=== PATIENT | male | born 1960 | race Hispanic/Latino ===

== ENCOUNTER 2018-09-10 19:59 | Inpatient (IN) | payer MEDICARE ==
--- NOTE | 2018-09-10 21:31 | CT ---
CT OF THE HEAD: 09/10/18 at 9:11 p.m. COMPARISON: 09/10/18, 6:48 p.m. HISTORY: Status post TPA administration, altered mental status. TECHNIQUE: Axial CT imaging at 5 mm intervals from vertex through skull base without contrast. FINDINGS: The imaged paranasal sinuses/mastoid air cells are well aerated. There is a new intra-axial hemorrhage in the region of the basal ganglia posteriorly on the left barbara uring 2.6 cm. There is also intraventricular hemorrhage within the body of the left lateral ventricle extending into the region of the atrium. There is no significant midline shift at this time. No acut e osseous abnormality. IMPRESSION: Interval development of an intra-axial hemorrhage on the left with intraventricular extension. Results called to Dr. Molina, 9:16 p.m., 09/10/18. Code CR POS: [facility]
[2018-09-10] MEDS ORDERED: niCARdipine 20MG In NaCl 20 MG/200 ML BAG ONE (21:39)
--- NOTE | 2018-09-10 21:44 | RAD ---
PORTABLE SEMIUPRIGHT FRONTAL CHEST RADIOGRAPH 09/10/18 COMPARISON: 11/16/12. HISTORY: Stroke, TPA. FINDINGS: No pneumothorax, pleural fluid, focal consolidation or alveolar edema. The heart and mediastinal cont ours are unremarkable. IMPRESSION: No acute findings. POS: [facility]
--- NOTE | 2018-09-10 21:46 | RAD ---
FRONTAL AND LATERAL IMAGING LEFT FOREARM: 09/10/18 COMPARISON: None. HISTORY: Status post fall, injury, trauma, pain. FINDINGS: No acute fracture or evidence of dislocation. No radiopaque foreign body or subcutaneous gas. IMPRESSION: No acute findings. POS: [facility]
[2018-09-10] MEDS ORDERED: Sodium Chloride 3% 500 ML IVPB PRN (21:50)
[2018-09-10] MEDS ORDERED: Mannitol 12.5 GM/50 ML IV PRN (21:50)
[2018-09-10] MEDS ORDERED: Labetalol HCl 100 MG/20 ML VIAL SLOW IVP PRN (21:50)
[2018-09-10] MEDS ORDERED: CCU Electrolyte Replacement 1 EACH IVPB ONE (21:50)
[2018-09-10] MEDS ORDERED: Mag-Al 1200 mg/1200 mg/30 ML UDCUP PO PRN (21:50)
[2018-09-10] MEDS ORDERED: Phenylephrine 10 MG/NS 250 ML 250 ML IVPB PRN (21:50)
[2018-09-10] MEDS ORDERED: Norepinephrine 8 MG/0.9% NS 250 ML IVPB PRN (21:50)
[2018-09-10] MEDS ORDERED: Docusate 100 MG CAP PO PRN (21:50)
[2018-09-10] MEDS ORDERED: Propofol 1,000 MG/100 ML VIAL IV ONE (21:51)
[2018-09-10] MEDS ORDERED: Phytonadione 10 MG in Sodium Chloride 0.9% 50 ML IVPB SCH (22:00)
[2018-09-10] MEDS ORDERED: Ventilator Sedation Protocol 1 EACH FS SCH (22:00)
[2018-09-10] MEDS ORDERED: Magnesium 2 GM/NS 0.9% 100 ML 2 GM in Premix Bag 1 BAG IVPB PRN (22:13)
[2018-09-10] MEDS ORDERED: Potassium Phosphate 15 MMOL in Sodium Chloride 0.9% 250 ML 250 ML IV PRN (22:13)
[2018-09-10] MEDS ORDERED: Magnesium Oxide 400 MG TAB PO PRN ×2 (22:13)
[2018-09-10] MEDS ORDERED: Potassium Chloride 20 MEQ TAB PO PRN (22:13)
[2018-09-10] MEDS ORDERED: DISCONTINUE PREVIOUS NARCOTIC PAIN MEDICATIONS AND BENZODIAZEPINES FS SCH (22:13)
[2018-09-10] MEDS ORDERED: fentaNYL Citrate/PF 2,000 MCG in Sodium Chloride 0.9% 60 ML IV SCH (22:13)
[2018-09-10] MEDS ORDERED: Potassium Phosphate 9 MMOL in Sodium Chloride 0.9% 100 ML IVPB PRN (22:13)
[2018-09-10] MEDS ORDERED: Potassium Phosphate 12 MMOL in Sodium Chloride 0.9% 250 ML 250 ML IV PRN (22:13)
[2018-09-10] MEDS ORDERED: CCU ELECTROLYTE REPLACEMENT PROTOCOL FS PRN (22:13)
[2018-09-10] MEDS ORDERED: Propofol BOLUS 1,000 MG/100 ML VIAL IV PRN (22:13)
[2018-09-10] MEDS ORDERED: Fentanyl BOLUS 250 ML IVPB PRN (22:13)
[2018-09-10 22:22] LABS: Platelet Count 236 thou/uL (130-400)
[2018-09-10 22:31] LABS: Fibrinogen 238 mg/dL (253-463); INR-International Normal Ratio 1.1; PTT 28.5 SEC (22.9-36.1); Prothrombin Time 14.4 SEC (12.0-14.7)
[2018-09-10 22:39] LABS: D-Dimer Test 3.52 *mcg/mL (0.27-0.43)
[2018-09-10 22:52] LABS: FSP-Qualitative ABNORMAL (Normal); FSP-Semiquantitative >=5 & <20 mcg/mL (Less than 5)
--- NOTE | 2018-09-11 00:34 | HP ---
CHIEF COMPLAINT: Stroke HISTORY OF PRESENT ILLNESS: This is a 58-year-old male with past medical history significant for lymphoma, colon cancer, penile cancer, hyperlipidemia, and hypertension, presenting with left lower extremity weakness due to CVA. Per records, the patient states that he started having some weakness at 3 p.m., and the patient was then transferred to [place] due to left-sided weakness. I spoke to the daughter by the bedside. Daughter states that the patient called the [id number] and made the ipgjum-do-[id number] aware that he had fallen due to him having left-sided weakness. The patient was trying to get up, but the patient was unable to get up due to weakness that he was sustaining. Per EMS report, the patient had a left-sided deficit and also had confusion with some slurred speech. The patient was given tPA, and it improved his mental status. The patient was started on Cardene and nitro en route to [facility]. Per records, the patient denied hitting his head, but having weakness in the left side. The patient also had slurred speech and numbness. The patient denies chest pain, palpitations, abdominal pain, hematuria, dysuria, increased frequency with urination, hematochezia, melena. REVIEW OF SYSTEMS: Positive for dysarthria, numbness, weakness of the left extremity. Otherwise, as documented in the HPI. All other systems were reviewed and are negative. PAST MEDICAL HISTORY: Lymphoma, colon cancer, penile cancer, hyperlipidemia, hypertension. FAMILY HISTORY: Reviewed and noncontributory to this visit. PAST SURGICAL HISTORY: Removal of lymph nodes at the groin, distal amputation of penis. SOCIAL HISTORY: The patient lives at home with family. Denies any illicit drug use. Unable to obtain if the patient is an ethanol drinker or smokes tobacco because the patient is currently starting to get confused. ALLERGIES: NO KNOWN DRUG ALLERGIES. CURRENT MEDICATIONS: The patient is on carvedilol 25 mg b.i.d. and nifedipine 30 mg. PHYSICAL EXAMINATION: VITAL SIGNS: Blood pressure is 153/103, pulse of 67, respiratory rate of 14, temperature of 98.2, O2 saturation of 96% on room air. GENERAL: The patient is awake, alert, and oriented x0. The patient's mental status has changed acutely during the time the nurse saw the patient couple of minutes during my physical exam. HEENT: Normocephalic and atraumatic. Pupils are reactive to light bilaterally. Extraocular muscles are intact. There are no signs of scleral icterus. No conjunctival pallor. Mucous membranes are moist. NECK: Midline. Full range of motion. Supple. RESPIRATORY: Lungs are clear to auscultation bilaterally. No wheezing, no rales, no rhonchi appreciated. CARDIAC: Positive S1 and S2. Regular rate and rhythm. No murmurs, no gallops , no rubs appreciated. ABDOMEN: Soft, nontender, nondistended. Positive bowel sounds in all quadrants. No peritoneal signs. No rigidity, no guarding. EXTREMITIES: The patient has mild weakness at the left upper extremity. No edema noted. Good pulses bilaterally. In the lower extremities, the patient has 5/5 lower extremity strength. No edema. SKIN: Warm, dry, and intact. NEURO: The patient is currently confused, however, no drift, no dysarthria, no dysmetria. DATA: EKG shows left axis deviation, first-degree AV block with a rate of 66, normal sinus rhythm. CT of the head was negative, but due to the fact that the patient was confused, we got another stat CT of the head, which did not show that the patient has hemorrhagic bleed. The patient has intracranial hemorrhagic stroke. ED COURSE: The patient was given vecuronium, propofol, succinylcholine, and etomidate in the ED. LABORATORY DATA: WBC is 8.6, hemoglobin is 15.0, hematocrit is 46.6, RDW is 11.9, platelet count is 236. Sodium is 138, serum potassium is 3.2, chloride is 101, carbon dioxide is 23, anion gap of 17, creatinine is 1.17, GFR is 64, glucose of 90, AST is 25, ALT is 36. ASSESSMENT AND PLAN: 1. This is a 58-year-old male being transferred from [place] to our facility to be admitted for stroke, status post tPA, which has now converted into hemorrhagic stroke. At this point, the patient is confused, and the patient is having some weakness in the left upper extremity compared to the right upper extremity. A stat CT of the head had been done, and I read it myself and also confirmed with the ED physician who was seeing the patient. The patient has hemorrhagic stroke at this time, status post tPA. At this time, we have ordered PT, PTT, fibrinogen levels. We have also ordered vitamin K and FFP to help stabilize the bleed. We have consulted Neurosurgery, and we have consulted critical care/intensive care physician. Due to the patient's worsening mentation, at this point, we have decided to intubate the patient, so the patient is going to be intubated, and we are going to admit the patient to the ICU. We are going to keep the patient's blood pressure below 150 systolic, and we will continue to monitor the patient very closely. We will follow up CT scan of the head in the a.m. 2. History of hypertension, currently uncontrolled. The patient is on propofol , and we will start nicardipine drip to bring the patient's blood pressure below 150 systolic. We will continue to monitor the blood pressure closely. We will continue neuro checks. 3. Hyperlipidemia: At this point, this patient is n.p.o. We will hold off oral medications. We will monitor the patient. 4. Deep venous thrombosis and gastrointestinal prophylaxis. Patient seen and examined on the 09/10/2018 Job ID: [id number] [facility]
[2018-09-11] MEDS: Propofol 1,000 MG/100 ML VIAL IV PRN ×2 (02:03→07:05)
--- NOTE | 2018-09-11 05:32 | CON ---
DATE OF CONSULTATION: 09/10/2018 HISTORY OF PRESENT ILLNESS: Mr. Weston is a 58-year-old male, who went to the [facility] today due to some left-sided weakness, suspected ischemic stroke. At the ED, the patient was hypertensive and a CT was negative. The patient was given tPA and transferred to [facility] in [place]. Upon arrival, the patient was having some difficulty with left extremity motions; however, they were improving since earlier in the day. The patient was communicating well with nurses and staff upon arrival. The patient stated that he was coming home from work, getting out of his truck, and fell to the left side and was unable to get up due to weakness in the left upper and lower extremities. Shortly after arrival in our emergency department, the patient began to be more confused. He started having some right-sided weakness, and a new CT head was performed showing a left intracerebral hemorrhage with extension into the ventricle. Neurosurgery was consulted. Upon my arrival to the emergency department, the patient had been intubated. Shortly before my arrival, the patient had started to deteriorate and started gurgling and having difficulty breathing. REVIEW OF SYSTEMS: Unable to obtain review of systems. The patient is intubated and sedated. PAST MEDICAL HISTORY: Includes history of malignancy, lymphoma, colon cancer, penile cancer, hyperlipidemia, hypertension. PAST SURGICAL HISTORY: Colon surgery, removal of lymph nodes in the groin, distal amputation of penis due to cancer. SOCIAL HISTORY: The patient lives at home with his family. MEDICATIONS: 1. Carvedilol 25 mg b.i.d. 2. Nifedipine 30 mg once a day. PHYSICAL EXAMINATION: VITAL SIGNS: Blood pressure 163/103, heart rate 67, respirations 14, temperature 98.2, oxygen saturation 100% on ventilator. CONSTITUTIONAL: The patient is intubated and sedated. He is afebrile and hypertensive. HEENT: Head is normocephalic and atraumatic. Pupils are equal, round, and reactive to light. RESPIRATIONS: Normal, symmetrical chest rise on ventilation. CARDIOVASCULAR: Regular rate and rhythm. Normal S1 and S2. NEUROLOGIC: The patient has been heavily sedated for intubation, and he is not responsive to stimulus, painful or otherwise, at this time. Pupils are equal, round, and reactive to light. The patient had positive gag reflex prior to intubation and was agitated. IMAGING DATA: CT of the head, there is intracerebral hemorrhage on the left in the region of the basal ganglia, measuring 2.6 cm. There is extension into the ventricles on the left. There is no significant midline shift. ASSESSMENT AND PLAN: The patient has been brought into the hospital. We will monitor his neurological status due to tPA involved hemorrhage. We will keep his blood pressure below 150. Neuro checks every 2 hours. We will keep an EVD kit at bedside and get a repeat CT scan in the morning. If there are any questions, please contact the neurosurgery team. Job ID: [id number]
--- NOTE | 2018-09-11 07:57 | RAD ---
SINGLE VIEW OF THE CHEST: COMPARISON: 09/10/2018. HISTORY: Intubation. FINDINGS: A single view of the chest shows a cardiomediastinal silhouette which is upper limits of normal in si ze. The endotracheal tube is seen with its tip between the clavicles. An NG tube is seen in the sto mach. There is no evidence of consolidation, mass, or pleural effusion. IMPRESSION: Appropriate position of nasogastric tube and endotracheal tube. POS: [facility]
--- NOTE | 2018-09-11 07:57 | PRG ---
DATE OF SERVICE: 09/11/2018 I personally examined the patient, reviewed imaging and documentations, spoke with the family and agreed with the notes of Angie Vasquez PA-C, dated 09/10/2018 and 09/11/2018. Briefly, Perez Weston is a 58-year-old gentleman with a history of colon cancer, lymphoma, genitourinary cancer, and prostate cancer, who was fairly independent until yesterday. Reported to his daughters that he had had some falls. He was speaking on the phone with such dysarthria, he was unable to be understood and was taken to an outside emergency department. Examination of the patient suggested stroke and a CT was, at that time, negative for hemorrhage. TPA was administered. He was transferred for further care. In transfer, his blood pressure was noted to be in the 200s and was started on antihypertensives. On arrival here, CT examination of the brain showed hemorrhage in the left basal ganglia with some extension to the ventricular system of low density. A repeat CT scan has been done already this morning. Nursing reports that Mr. Weston has needed propofol to tolerate the event. It had only reflex activity on motor examination of the patient overnight. When I came in the room this morning, the blood pressure is 156/68. Other vital signs are stable. Propofol has been off for 1 to 2 minutes. I left the propofol off and examined the patient. With stimulus, he opens his eyes. He begins to withdraw the right and left upper extremities. The right arm is moving a bit more. He is not localizing that. In the lower extremities, the left withdraws more so than the right. CT examination of the brain this morning shows stabilization of the hemorrhagic focus in the left basal ganglia. There is a solid clot now rather than the low-density blood products. It is not bigger in size and not causing any significant mass effect. Intraventricular blood is washing out except for some blood products in the dependent portion of the occipital horn on the left side. There is no significant mass effect or shift. There seems to be some small amount of subarachnoid blood over the right convexity. The mcgrath-white differentiation on the right is not what I expected today. IMPRESSION: Cerebrovascular events treated with tPA, intracerebral hemorrhage. PLAN: As I spoke with Mr. Weston of his pathology on both sides of the brain, an MRI scan will be worthwhile today with the addition of contrast would be nice to rule out any involvement of his multiple previous cancers. If this turns out to be ischemic infarcts on both sides with hemorrhagic conversions due to tPA, the proximal source of the infarcts is before the carotid arteries and likely the heart itself. The first step is the MRI scan of the brain with stroke protocol but also with contrast. We will defer to the Medical and Neurology Teams about management of ischemic stroke with hemorrhagic conversion. I think the likelihood of surgical intervention is low. Job ID: [id number]
--- NOTE | 2018-09-11 08:41 | CT ---
PRELIMINARY REPORT/[facility]/EMERGENTY AFTER-HOURS PROCEDURE Addendum created by Nacho Aquino MD on 09/11/2018 4:59 AM Central Time ([place] & [place]) Examination results of the patient were discussed with MARK Odonnell on 09/11/2018 at 4:55 AM MAIL DISTRIBUTION SCHEME EXAMINER MAIL DISTRIBUTION SCHEME EXAMINER . Addendum created by Nacho Aquino MD on 09/11/2018 4:54 AM Central Time ([place] & [place]) A prior examination dated 09/10/2018 at 2111 hrs. was later sent for comparison: (1) No interval change in approximate 2.0 x 3.6 x 4.0 cm left-sided intraparenchymal hemorrhage or he morrhage within the left lateral ventricle. (2) areas of subarachnoid hemorrhage and hemorrhage within the right occipital horn are new compared to the prior CT head examination. Initial Report created on 09/11/2018 4:36 AM Central Time ([place] & [place]) CT Head Without Intravenous Contrast EXAM DATE/TIME: 09/11/2018 4:02 AM CLINICAL HISTORY: 58 years old, male; intracranial hemorrhage. aneurysm, cerebral TECHNIQUE: Axial computed tomography images of the head/brain without intravenous contrast. COMPARISON: No relevant prior studies available. FINDINGS: Brain: Approximate 2.0 x 3.6 x 4.0 cm acute intraparenchymal hemorrhage centered in the posterior lef t basal ganglia region lateral to the left thalamus. Small amount of subarachnoid hemorrhage within p arietal lobe cortical sulcal markings bilaterally. A few scattered small areas of decreased density i n the periventricular white matter which are likely secondary to chronic ischemia from microvascular change. Mild diffuse cerebral atrophy. Ventricles: Associated intraventricular extension of hemorrhage - hemorrhage within each occipital ho rn, left greater than right. Ventricular prominence in this patient with mild diffuse cerebral atroph y. Bones/joints: Normal. No acute fracture. Sinuses: Partial maxillary and ethmoid sinusitis. Mastoid air cells: No mastoiditis. Soft tissues: Normal. IMPRESSION: 1. Approximate 2.0 x 3.6 x 4.0 cm acute intraparenchymal hemorrhage centered in the posterior left ba liu ganglia region lateral to the left thalamus. Associated intraventricular extension of hemorrhage - hemorrhage within each occipital horn, left greater than right. 2. Small amount of subarachnoid hemorrhage within parietal lobe cortical sulcal markings bilaterally. Thank you for allowing us to participate in the care of your patient. Dictated and Authenticated by: Nacho Aquino MD 09/11/2018 4:36 AM Central Time ([place] & [place]) FINAL REPORT CT BRAIN WITHOUT CONTRAST: Date: 09/11/18 FINDINGS/IMPRESSION: I agree with the preliminary report given by Blanquita. POS: [facility]
--- NOTE | 2018-09-11 09:51 | PDOC.PN ---
- Subjective Encounter Start Date: 09/11/18 Encounter Start Time: 09:49 Mr. Weston was seen today in follow-up of CVA post TPA with Bleed. He is intubated and sedated. - Objective Resuscitation Status - Order Detail: 09/10/18 21:50 Resuscitation Status Routine Resuscitation Status: FULL: Full Resuscitation MAR Reviewed: Yes Vital Signs & Weight: Vital Signs (12 hours) Temp Pulse Resp BP Pulse Ox 09/11/18 07:23 82 142/75 H 09/11/18 06:00 18 09/11/18 04:00 98.2 F 16 09/11/18 02:26 69 123/74 09/11/18 02:00 15 09/11/18 00:23 79 148/84 H 09/11/18 00:00 98.4 F 16 100 Weight Weight 201 lb 0.985 oz Most Recent Monitor Data Heart Rate from ECG 85 NIBP 133/77 NIBP BP-Mean 95 Respiration from ECG 17 SpO2 100 I&O: 09/10/18 09/11/18 09/12/18 06:59 06:59 06:59 Intake Total 633 Output Total 420 Balance 213 Result Diagrams: 09/10/18 22:09 Additional Labs: Accuchecks 09/10/18 20:09 POC Glucose 97 Phys Exam - Physical Examination HEENT: PERRLA Respiratory: no wheezing, no rales, no rhonchi, clear to auscultation bilateral Cardiovascular: RRR, no significant murmur, no rub Gastrointestinal: soft, non-tender, no distention, positive bowel sounds Musculoskeletal: no edema, pulses present Puplis are equal and reactive Dx/Plan (1) Acute CVA (cerebrovascular accident) Code(s): I63.9 - CEREBRAL INFARCTION, UNSPECIFIED Status: Acute (2) Received tissue plasminogen activator (t-PA) less than 24 hours prior to arrival Code(s): Z92.82 - S/P ADMN TPA IN DIFF FAC W/N LAST 24 HR BEF ADM TO CRNT FAC Status: Acute (3) Intraventricular hemorrhage Code(s): I61.5 - NONTRAUMATIC INTRACEREBRAL HEMORRHAGE, INTRAVENTRICULAR Status: Acute (4) Hypertension Code(s): I10 - ESSENTIAL (PRIMARY) HYPERTENSION Status: Chronic (5) Prostate cancer Code(s): C61 - MALIGNANT NEOPLASM OF PROSTATE Status: Acute (6) Colon cancer Code(s): C18.9 - MALIGNANT NEOPLASM OF COLON, UNSPECIFIED Status: Acute (7) Acute respiratory failure Code(s): J96.00 - ACUTE RESPIRATORY FAILURE, UNSP W HYPOXIA OR HYPERCAPNIA Status: Acute - Plan * Patient is admitted with Acute CVA with left leg weakness. He is s/p TPA, and with hemorrhagic conversion of the stroke. He became less responsive, and was intubated. He has been given FFP. Neurosurgery has evaluated the patient and surgery is not indicated * Will continue Ventilator support of respiratory failure- and PCCM has been consulted * HTN- blood pressure is in an acceptable range on the Cardene drip * Await further recommendations from Neurology * Prostate cancer- apparently this was recently discovered, and plan is for treatment at [facility] in the future. Evaluation of this and treatment can be differed , as the acute critical nature of the CVA takes precedence- will cancel Oncology consult. * .
[2018-09-11 11:33] LABS: Bilirubin Negative (Negative); Blood, Urine Negative (Negative); Clarity CLEAR (Clear); Glucose, Urine (Dipstick) Negative (Negative); Leukocyte Negative (Negative); Nitrite Negative (Negative); Protein, Urine (Dipstick) 30 mg/dL (Neg-Trace); Specific Gravity, Urine 1.012 (1.002-1.036); Urobilinogen 0.2 mg/dL (0.2-1.0); pH, Urine 6.5 (5.0-9.0)
[2018-09-11 11:34] LABS: Bacteria/HPF None Seen HPF (None Seen); Hyaline Casts/LPF 0-3 HYALINE CAST LPF (0-3 Hyaline); Pathc Cast-AUWi Flag 0.58 (0-2.49); Squamous Epithelial 0-3 HPF (0-3); WBC/HPF 0-3 HPF (0-3)
[2018-09-11] MEDS: cefTRIAXone\\ROCEPHIN 2 GM in Sodium Chloride 0.9% 100 ML IVPB SCH (18:58)
[2018-09-11 19:21] LABS: #Lymphocytes 1.1 thou/uL (1.20-3.40); #Monocytes 1.1 thou/uL (0.11-0.59); #Neutrophils 9.3 thou/uL (1.40-6.50); %Basophils 0.1 % (0.0-1.0); %Eosinophils 0.1 % (0.0-10.0); %Lymphocytes 9.5 % (21.0-51.0); %Monocytes 9.2 % (0.0-10.0); %Neutrophils 81.1 % (42.0-75.0); Hemoglobin 13.5 g/dL (14.0-18.0); Mean Corpuscular HGB CONC 33.9 g/dL (32.0-36.0); Mean Corpuscular Hemoglobin 30.9 pg (27.0-31.0); Mean Corpuscular Volume 91.1 fL (78.0-98.0); Mean Platelet Volume 8.9 fL (7.4-10.4); Platelet Count 204 thou/uL (130-400); RBC Distribution Width 11.7 % (11.5-14.5); Red Blood Cell (RBC) Count 4.38 mill/uL (4.70-6.10); White Blood Cell (WBC) Count 11.4 thou/uL (4.8-10.8)
[2018-09-11 19:42] LABS: Anion Gap 14 mmol/L (10-20); BUN (Urea Nitrogen) 20 mg/dL (8.4-25.7); Calc. Creatinine Clearance 80 mL/min (70-130); Carbon Dioxide 25 mmol/L (22-29); Cardiac Risk 4.4 (Less than 4.5); Chloride 103 mmol/L (98-107); Cholesterol 220 mg/dl (< 200 Desired); Estimated GFR-MDRD 58; Glucose 169 mg/dL (70-105); HDL Cholesterol 50 mg/dL (>60 Neg Risk); LDL Cholesterol, Calculated 142 mg/dL; Sodium 139 mmol/L (136-145); Triglycerides 138 mg/dL (Less than 150)
[2018-09-11 19:47] LABS: Potassium 2.9 mmol/L (3.5-5.1)
--- NOTE | 2018-09-11 20:03 | CON ---
DATE OF CONSULTATION: 09/11/2018 CONSULTING PHYSICIAN: Dr. Msihra. REASON FOR CONSULTATION: Altered anatomy for catheter placement. HISTORY OF PRESENT ILLNESS: Mr. Weston is a 58-year-old male, who presented to [place] ER today with left-sided weakness, who has had a suspected ischemic stroke. He was hypertensive but received tPA and then ended-up with a hemorrhagic bleed into the brain. He is now currently in the ICU, intubated and under sedation. The patient had a condom catheter placed on, but had 400 mL in his bladder and it is unclear whether or not he will be able to urinate given that he is currently under sedation. He has a history of penile cancer and a partial penectomy at [facility] as well as apparently having a history of prostate cancer. The patient is completely unresponsive, but none of the history is able to be obtained from the patient. There is no family at bedside either. Dr. Mishra consulted me and stated that he was concerned about the patient's altered anatomy and wanted to seek my assistance in placement of a catheter or suprapubic tube to allow for urinary drainage. Again, there is no family at bedside and the patient is currently sedated, and all the history is obtained from nursing staff, physicians, and medical records. ALLERGIES: NONE. HOME MEDICATIONS: Not available at this time. PAST MEDICAL HISTORY: 1. Lymphoma. 2. Colon cancer. 3. Penile cancer. 4. Hyperlipidemia. 5. Hypertension. PAST SURGICAL HISTORY: 1. Partial colectomy. 2. Inguinal lymphadenectomy. 3. Distal amputation of penis secondary to cancer. SOCIAL HISTORY: The patient apparently lives at home and is and has a daughter. No other social history is available. FAMILY HISTORY: Unknown at this time. REVIEW OF SYSTEMS: Cannot be obtained as the patient is currently intubated and sedated. PHYSICAL EXAMINATION: VITAL SIGNS: Temperature 101.3; heart rate 85; respirations 17, on ventilator; blood pressure 133/77; and saturation 95%, again on ventilator. GENERAL: The patient is sedated. He does respond to stimuli, but did not open his eyes. HEENT: ET tube is in place, secured. Trachea, midline. Pupils are currently symmetric. CARDIOVASCULAR: Regular rate and rhythm. Normal S1 and S2. CHEST: Bilateral breath sounds, symmetric expansion of the lungs, currently ventilated. ABDOMEN: Soft, nontender, nondistended, positive bowel sounds, no organomegaly or masses. : The patient has a partial penectomy with removal of the glans. He has a neomeatus, which appears to be patent. There is currently a condom catheter in place, which was removed. Scrotal exam demonstrates bilateral descended testes, no masses. There does not appear to be any type of artificial urinary sphincter or pump device present. RECTAL: Deferred. EXTREMITIES: No significant clubbing, cyanosis, or edema. MUSCULOSKELETAL: There is no joint deformities or joint erythema noted. No obvious inflammation with any of the joints. NEUROLOGIC: The patient does withdraw to painful stimuli and does respond to physical touch, but not to verbal stimulation. A full neuro exam could not be performed, again as the patient is sedated. SKIN: Warm and dry. Good turgor. No rashes or lesions. The patient is currently warm from his fever. LABORATORY DATA: On laboratory evaluation, full set of labs in the [facility] system, which I have reviewed. Of note, the patient's creatinine is 1.17 with a white count of 8.6 as of yesterday. PROCEDURE: The penis was prepped in the usual sterile fashion. A 16-Malay Montejo catheter with temperature probe was inserted through the neomeatus. There was some resistance at the membranous urethra near the sphincter, but with gentle pressure and straightening the urethra, the catheter did go easily into the bladder. The bladder was irrigated with return of clear yellow urine. 10 mL of sterile water placed into the balloon and secured with a StatLock to the patient's leg. ASSESSMENT AND PLAN: A 58-year-old male with history of penile cancer and partial penectomy, unclear history if he also has prostate cancer as this is not mentioned in his medical records, but apparently, the nursing staff states his daughter stated he had this. It is currently not a current issue. He has a successful cathter placement currently. From my standpoint, he can keep the catheter as long as necessary by the Critical Care Team. From my standpoint, no further followup is necessary with me as he does have a urologist with [facility]. He can follow up with me on a p.r.n. basis if there are any problems with his catheter or issues regarding any issues. Feel free to reconsult, otherwise I will sign off at this time. Job ID: [id number]
[2018-09-11] MEDS: Potassium Chloride 40 MEQ in Sodium Chloride 0.9% 250 ML 250 ML IVPB PRN (21:10)
--- NOTE | 2018-09-11 21:47 | PRG ---
DATE OF SERVICE: 09/11/2018 SUBJECTIVE: Mr. Weston developed a fever this morning. Blood and urine cultures were drawn. I asked Urology to see him because he had an external catheter on his penis and it is unclear whether or not he had an artificial sphincter in. Apparently by exam, he did not, so a Montejo was placed. His urine was cultured, his blood was cultured. We will continue with supportive care. Critical care time is 35 minutes Job ID: [id number] MTDD
--- NOTE | 2018-09-12 00:48 | CON ---
DATE OF CONSULTATION: 09/11/2018 TYPE OF CONSULTATION: Neurology. CONSULTING PHYSICIAN: Hospitalist Services. IMPRESSION: 1. Intraventricular and basal ganglia hemorrhage following tPA administration on the left side resulting in depressed mental status. 2. Questionable ischemic event with transient dysarthria associated with marked hypertension. 3. History of colon cancer, lymphoma, and prostate cancer. PLAN: 1. MRI of the brain. 2. Continue supportive measures. 3. Intervention is deemed necessary by Neurosurgery. HISTORY OF PRESENT ILLNESS: Mr. Weston is a 58-year-old gentleman, who presented to [facility] with complaints of dysarthria. He was hypertensive with systolic pressures over 200. He apparently had a CT of the brain done and subsequent administration of tPA. He developed a secondary hemorrhage and was transferred here for care. He was seen by Neurosurgery, who has not thought any intervention is necessary at this point. Due to the concerns of an ischemic event, they would like an MRI before proceeding with anything. He has not had any secondary seizures or other neurologic or cardiovascular compromise. PAST MEDICAL HISTORY: As listed above. ALLERGIES: NONE REPORTED. SOCIAL HISTORY: Unknown. FAMILY HISTORY: Unknown. REVIEW OF SYSTEMS: Not obtainable. PHYSICAL EXAMINATION: VITAL SIGNS: Blood pressure 158/88, pulse 51, respirations 16, saturations 100%. He is on ventilatory support. HEENT: Pupils are equal. Conjunctivae are clear. He has roving eye movements that are conjugate. He is orally intubated. EXTREMITIES: He has weak pain response in the extremities with very minor degrees of withdrawal present to painful stimulation. Plantar responses are upgoing bilaterally. He has some spontaneous movements of the right arm more than the left. EKG, sinus rhythm. SUMMARY: This is an unfortunate middle-aged gentleman, who had a fairly significant intracranial bleed secondary to his tPA. I will see if the MRI warrants further workup for TIA and stroke. Job ID: [id number]
--- NOTE | 2018-09-12 03:11 | CON ---
DATE OF CONSULTATION: 09/11/2018 HISTORY OF PRESENT ILLNESS: Mr. Weston is a 58-year-old male. He was admitted last night. He presented upon transfer from [facility] with left-sided weakness. He apparently fell and that is when they discovered the weakness. He also had slurred speech. He was transferred here. PAST MEDICAL HISTORY: Remarkable for colon cancer, penis cancer, hyperlipidemia , hypertension, and history of lymphoma. 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 SOCIAL HISTORY: He is a nonsmoker and nondrinker reportedly. ALLERGIES: HE HAS NO REPORTED ALLERGIES. MEDICATIONS: Prior to admission, he was on, 1. Nifedipine. 2. Coreg. PHYSICAL EXAMINATION: VITAL SIGNS: Blood pressure is in the 150s. Heart rate is in sinus rhythm in the 50s. He was switched off propofol and he was started on Precedex. His heart rate was in the 70s prior to Precedex, now in the 50s. His last blood pressure was 156/84. HEENT: His pupils are equal. Sclerae are anicteric. NECK: Supple. LUNGS: Clear. HEART: Regular rhythm. ABDOMEN: Soft. EXTREMITIES: Without asymmetry. ASSESSMENT AND PLAN: Apparently, he was quite hypertensive in [facility] and received tPA and then bled. Dr. Menendez feels his neuro status is stabilizing. He recommended a magnetic resonance imaging. He is not weanable from mechanical ventilation. He apparently was transferred and deteriorated after he got here and then was intubated, so we will continue mechanical ventilation until his neuro status stabilizes. Critical care time 30 minutes. Job ID: [id number] [facility]
[2018-09-12 04:35] LABS: Anion Gap 13 mmol/L (10-20); BUN (Urea Nitrogen) 21 mg/dL (8.4-25.7); Calc. Creatinine Clearance 87 mL/min (70-130); Calcium 9.1 mg/dL (7.8-10.44); Carbon Dioxide 24 mmol/L (22-29); Chloride 105 mmol/L (98-107); Estimated GFR-MDRD 64; Glucose 157 mg/dL (70-105); Sodium 139 mmol/L (136-145)
[2018-09-12 04:51] LABS: Potassium 2.9 mmol/L (3.5-5.1)
[2018-09-12 05:21] LABS: Band 1 % (5-11); Hemoglobin 13.4 g/dL (14.0-18.0); Hypochromia SLIGHT = 6-15 cells (100X) (0-5/hpf); Lymphocytes 3 % (21-51); MDiff Complete? YES; Mean Corpuscular HGB CONC 34.3 g/dL (32.0-36.0); Mean Corpuscular Hemoglobin 31.4 pg (27.0-31.0); Mean Corpuscular Volume 91.5 fL (78.0-98.0); Mean Platelet Volume 9.7 fL (7.4-10.4); Monocytes 3 % (0-10); Neutrophil 93 % (42-75); PLT Morphology Comment Appears Adequate; Platelet Count 197 thou/uL (130-400); RBC Distribution Width 11.8 % (11.5-14.5); Red Blood Cell (RBC) Count 4.26 mill/uL (4.70-6.10); White Blood Cell (WBC) Count 12.2 thou/uL (4.8-10.8)
[2018-09-12] MEDS: Potassium Chloride 40 MEQ in Sodium Chloride 0.9% 250 ML 250 ML IVPB PRN (05:40)
[2018-09-12] MEDS: Propofol 1,000 MG/100 ML VIAL IV PRN (06:25)
[2018-09-12 07:15] LABS: CKMB 1.1 ng/mL (0-6.6); Troponin I 0.015 ng/mL (< 0.028)
[2018-09-12 07:55] LABS: Base Excess (BEa) 2.4 mEq/L (-2.0 to +3.0); CO2 Tension 32.5 mmHg (35.0-45.0); Calcium, Ionized 1.18 mmol/L (1.12-1.30); Carboxyhemoglobin (COHb) 1.2 gm% (0.0-3.0); Hemoglobin (Hb) 12.5 g/dL (14.0-18.0); O2 Tension (PaO2) 123.1 mmHg (> 80.0); Potassium - ABG Lab 3.27 mmol/L (3.70-5.30)
[2018-09-12 07:58] LABS: ALV-art Gradient 121.475 (0-20); Puncture Site L.R.
--- NOTE | 2018-09-12 08:30 | PRG ---
DATE OF SERVICE: 09/12/2018 NEUROSURGERY PROGRESS NOTE I saw Perez Weston in his ICU room this morning. His nursing is concerned about a wide QRS complex and some ST-segment changes. I feel this started to happen on Precedex, whereas it had not occurred on propofol. Otherwise, there are no events overnight. This morning, the vital signs are relatively stable with the blood pressure in the 140s. Rhythm and rate are normal. The QRS complexes are little wide, and there are some ST-segment elevations and depressions. This is on the monitor, not on a formal EKG. In spite of Precedex running, Mr. Weston opens his eyes to stimulus. He localizes much more briskly today than yesterday. The right side moves faster with more purpose than the left side of the body. He still withdraws both legs and both arms. He tends to localize with the left arm, but it is quite weak compared to the right. MR imaging is pending. Plan is for Mr. Weston to have MR imaging. I think he has an ischemic stroke involving the right hemisphere of the brain and hemorrhage in an area, where he may have had the previous stroke on the left side. The hemorrhage is likely related to the tPA use and hypertension at the same time. We will continue to follow Mr. Weston. I will defer the management of this cardiac change to Critical Care and Medical colleagues; however, I recommended changing back to propofol to see if it helps. In the meantime, cardiac enzymes and EKGs will be ordered. We will continue to follow for his neurological status. Job ID: [id number] MTDD
--- NOTE | 2018-09-12 09:02 | RAD ---
CHEST 1 VIEW: Date: 09/12/18 INDICATION: Intubation. COMPARISON: Prior exam dated 09/10/18. FINDINGS: ET tube and gastric catheter are unchanged. Cardiomegaly and pulmonary vascular congestion persists. No consolidation, pleural effusion, or pneumothorax is evident. No acute osseous abnormality is noted . IMPRESSION: Stable exam from 09/10/18. No pneumothorax. POS: [facility]
[2018-09-12] MEDS ORDERED: Amlodipine 5 MG TAB PO SCH (09:30)
[2018-09-12] MEDS ORDERED: Succinylcholine Chloride 20 MG/ML 10 ml SYRINGE FS ONE (11:11)
[2018-09-12] MEDS ORDERED: PROPOFOL 200 MG/20 ML VIAL ONE (11:11)
[2018-09-12] MEDS: Lorazepam 2 MG/ML VIAL SLOW IVP PRN (11:44)
--- NOTE | 2018-09-12 12:06 | PRG ---
DATE OF SERVICE: 09/12/2018 SUBJECTIVE: Perez Weston is unchanged. VSS OBJECTIVE: LUNGS: Clear. HEART: Regular rhythm. ABDOMEN: Soft and nontender. EXTREMITIES: Without edema. Chest radiograph is clear. Intake and output negative 889. Blood gas shows a pH of 7.5, CO2 of 32, pO2 of 123. IMPRESSION: 1. Status post presentation to the emergency room with hemiplegia and hypertension. 2. Status post tPA with bleed post tPA. 3. Respiratory failure, acute. PLAN: As per Neurology and Neurosurgery's guidance. He will remain mechanically ventilated at this time. He is not candidate for weaning or extubation. Critical care time is 35 minutes. Job ID: [id number] MTDD
--- NOTE | 2018-09-12 14:16 | MRI ---
MRI BRAIN WITH AND WITHOUT CONTRAST: 09/12/2018 HISTORY: Evaluate acute infarction and intracranial hemorrhage. COMPARISON: None. TECHNIQUE: Multiplanar, multisequence MR imaging of the brain is provided with and without contrast. FINDINGS: There is a large area of restricted diffusion within the MCA territory, on the right, evidence of ext ensive right MCA acute infarction. This measures 5.1 x 9.7 cm in greatest transverse and AP dimensio n. On the gradient echo imaging, there are a few scattered, somewhat linear foci of blooming artifac t within this area of infarction, within the right MCA territory, which could represent small volume associated petechial hemorrhage or small volume subarachnoid hemorrhage. Clot within the peripheral MCA branches could also have a similar appearance. Blooming artifact on the basis of intraaxial hemorrhage is seen lateral to the basal ganglia on the l eft. This left intraaxial hemorrhage measures 1.8 x 2.9 cm. There is blooming artifact associated w ith intraventricular blood, which layers within the posterior horn of the left lateral ventricle. The above described above MCA infarction on the right demonstrates extensive cytotoxic edema with inc reased T2 and FLAIR signal within the associated periventricular deep and subcortical white matter. There is extensive mucosal thickening of the sphenoid sinuses and the ethmoid air cells. Arterial flow voids at the axial level of the skull base are grossly unremarkable but not optimally a ssessed on this exam. The post contrast imaging demonstrates no abnormal enhancement within the brain parenchyma. There is mild mass effect on the right lateral ventricle, which is effaced in the region of the front al horn and atrium. There is mild right to left midline shift at the axial level of the septum pellucidum, which measures in the 3 mm range. IMPRESSION: 1. Large acute middle cerebral artery infarction on the right. Scattered small volume internal area s of blooming artifact may signify intra-arterial thrombus, small volume petechial cortically based h emorrhage, and/or small volume subarachnoid blood. 2. Intra-axial hemorrhage lateral to the left basal ganglia, with intraventricular extension. 3. Mild right to left midline shift. Angie Vasquez PA-C made aware, via phone, by Dr. Montero, at 12:47 p.m. on 09/12/2018. CODE CR POS: [facility]
--- NOTE | 2018-09-12 14:20 | PRG ---
DATE OF SERVICE: 09/12/2018 COVERING FOR: Dr. Mcclellan. REASON FOR NEUROLOGY FOLLOWUP: Altered mental status. HISTORY OF PRESENT ILLNESS: The patient came in from an outside hospital with stroke-like symptoms. He received tPA. He has suffered an intraventricular and basal ganglia hemorrhage. He is unable to follow commands at this time. He is intubated on the ventilator. He is noted to move his right side. He is not moving his left side. REVIEW OF SYSTEMS: Unable to obtain due to the patient's mental status. The patient also is being seen by Neurosurgery. PHYSICAL EXAMINATION: VITAL SIGNS: Show blood pressure of 127/68, O2 sat is 100%, heart rate 46, and respiratory rate 18. DIAGNOSTIC DATA: MRI of the brain was ordered and is pending. CT of the head was performed on 09/11/2018 at 04:59 a.m. There was a 2 x 3.6 x 4 cm left intraparenchymal hemorrhage within the left lateral ventricle. IMPRESSION: A large intracerebral hemorrhage, also history of hypertension and cerebrovascular accident. PLAN: Obtain MRI of the brain when able. Ordered an EEG. Job ID: [id number]
[2018-09-12 14:41] LABS: Potassium 2.9 mmol/L (3.5-5.1)
[2018-09-12] MEDS: Potassium Chloride 40 MEQ in Premix Bag 1 BAG IVPB PRN ×2 (16:44→23:07)
[2018-09-12] MEDS: cefTRIAXone\\ROCEPHIN 2 GM in Sodium Chloride 0.9% 100 ML IVPB SCH (20:45)
[2018-09-12] MEDS: niCARdipine HCl 50 MG in Sodium Chloride 0.9% 250 ML 230 ML IVPB PRN (21:02)
--- NOTE | 2018-09-12 22:33 | PDOC.PN ---
- Subjective Encounter Start Date: 09/12/18 Encounter Start Time: 15:00 Patient seen and examined for Acute CVA. On [facility] Vent. No overnight events - Objective Resuscitation Status - Order Detail: 09/10/18 21:50 Resuscitation Status Routine Resuscitation Status: FULL: Full Resuscitation MAR Reviewed: Yes Vital Signs & Weight: Vital Signs (12 hours) Temp Pulse Resp BP 09/12/18 22:08 89 09/12/18 22:00 21 H 09/12/18 20:00 100.8 F H 22 H 09/12/18 18:35 93 09/12/18 18:00 16 09/12/18 16:00 100.2 F H 17 09/12/18 15:00 107 H 09/12/18 14:00 15 09/12/18 13:00 99.2 F 09/12/18 12:45 19 09/12/18 12:42 89 174/97 H Weight Admit Weight 201 lb Weight 200 lb 13 oz Most Recent Monitor Data Heart Rate from ECG 52 NIBP 127/62 NIBP BP-Mean 83 Respiration from ECG 19 SpO2 98 I&O: 09/11/18 09/12/18 09/13/18 06:59 06:59 06:59 Intake Total 633 1995 1984.3 Output Total 420 2885 2245 Balance 213 -889 -260.7 Result Diagrams: 09/12/18 03:27 09/13/18 06:38 Additional Labs: Accuchecks 09/12/18 09/12/18 21:59 04:21 POC Glucose 134 H 145 H Laboratory Tests 09/12/18 14:13 Potassium 2.9 L* Radiology Reviewed by me: Yes (CT and MRI brain - Acute CVA with hemorrhage) EKG Reviewed by me: Yes (Tele SR) Phys Exam - Physical Examination Constitutional: NAD (on Vent) Respiratory: no wheezing, no rales, no rhonchi Symmetrical Cardiovascular: RRR, no rub no heaves/pulsations Gastrointestinal: soft, positive bowel sounds no guarding/rigidity Musculoskeletal: no edema Neuro/Psych - cannot assess due to sedation Dx/Plan (1) Acute CVA (cerebrovascular accident) Code(s): I63.9 - CEREBRAL INFARCTION, UNSPECIFIED Status: Acute Comment: s/ p TPA (2) Hypokalemia Code(s): E87.6 - HYPOKALEMIA Status: Acute (3) Acute respiratory failure Code(s): J96.00 - ACUTE RESPIRATORY FAILURE, UNSP W HYPOXIA OR HYPERCAPNIA Status: Acute Comment: due to Acute CVA/Encephalopathy (4) Intraventricular hemorrhage Code(s): I61.5 - NONTRAUMATIC INTRACEREBRAL HEMORRHAGE, INTRAVENTRICULAR Status: Acute (5) Obesity (BMI 30.0-34.9) Code(s): E66.9 - OBESITY, UNSPECIFIED Status: Chronic (6) Hypertension Code(s): I10 - ESSENTIAL (PRIMARY) HYPERTENSION Status: Chronic (7) Prostate cancer Code(s): C61 - MALIGNANT NEOPLASM OF PROSTATE Status: Chronic - Plan plan discussed w/ family, yeager catheter, DVT proph w/SCDs * Not on antiplatelets due to intracranial bleed * Cont supportive care * AM labs * Replace Potassium * Cont other meds as below Review of Systems - Review of Systems Cardiovascular: negative: chest pain, palpitations, orthopnea, paroxysmal nocturnal dyspnea, edema, light headedness, other Gastrointestinal: negative: Nausea, Vomiting, Abdominal Pain, Diarrhea, Constipation, Melena, Hematochezia, Other - Medications/Allergies Allergies/Adverse Reactions: Allergies Allergy/AdvReac Type Severity Reaction Status Date / Time No Known Allergies Allergy Unverified 09/10/18 22:04 Medications: Current Medications Acetaminophen (Tylenol) 650 mg PO Q6H PRN PRN Reason: Fever > 101 or Headache Al Hydroxide/Mg Hydroxide (Maalox) 30 ml PO QIDPRN PRN PRN Reason: Dyspepsia Amlodipine Besylate (Norvasc) 5 mg PER TUBE DAILY [place] Clonidine (Catapres) 0.1 mg PO Q4H PRN PRN Reason: SBP GREATER THAN 160 Docusate Sodium (Colace) 100 mg PO BIDPRN PRN PRN Reason: Constipation Norepinephrine Bitartrate (Levophed) 250 mls @ 0 mls/hr IVPB PRN PRN; Protocol PRN Reason: SBP < 110 or DBP < 50 Sodium Chloride (Sodium Chloride 3%) 500 mls @ 50 mls/hr IVPB PRN PRN PRN Reason: ICP Management Phenylephrine HCl (Alex-Synephrine) 250 mls @ 0 mls/hr IVPB PRN PRN; Protocol PRN Reason: SBP < 110 or DBP < 50 Fentanyl Citrate 2,000 mcg/ (Sodium Chloride) 100 mls @ 0 mls/hr IV INF [place]; Protocol Stop: 10/10/18 22:13 Fentanyl Citrate (Fentanyl Bolus) 250 mls @ 0 mls/hr IVPB PRN PRN PRN Reason: Breakthrough pain/agitation Stop: 10/10/18 22:13 Potassium Chloride 40 meq/ (Sodium Chloride) 270 mls @ 135 mls/hr IVPB ASDIR PRN PRN Reason: FOR SERUM K+ 2.5 - 3.5 Last Admin: 09/12/18 05:40 Dose: 270 mls Potassium Chloride 40 meq/ (Device) 100 mls @ 50 mls/hr IVPB ASDIR PRN PRN Reason: FOR SERUM K+ 2.5 - 3.5 Last Admin: 09/12/18 16:44 Dose: 100 mls Magnesium Sulfate 1 gm/ Sodium (Chloride) 102 mls @ 102 mls/hr IV PRN PRN PRN Reason: MAG LEVEL 1.4 - 2.0 Magnesium Sulfate 2 gm/ Device 100 mls @ 100 mls/hr IVPB ASDIR PRN PRN Reason: MAGNESIUM < 1.4 Potassium Phosphate 9 mmol/ (Sodium Chloride) 103 mls @ 25.75 mls/hr IVPB ASDIR PRN PRN Reason: Phosphate 1.0-1.8 Potassium Phosphate 12 mmol/ (Sodium Chloride) 254 mls @ 63.5 mls/hr IV ASDIR PRN PRN Reason: Serum phosphate 0.5-0.9 Potassium Phosphate 15 mmol/ (Sodium Chloride) 255 mls @ 63.75 mls/hr IV ASDIR PRN PRN Reason: Serum Phos < 0.5 Dexmedetomidine HCl 400 mcg/ (Sodium Chloride) 100 mls @ 0 mls/hr IVPB INF [place] ; Protocol Last Admin: 09/12/18 21:02 Dose: 100 mls Ceftriaxone Sodium 2 gm/ (Sodium Chloride) 100 mls @ 200 mls/hr IVPB Q24HR [place] Last Admin: 09/12/18 20:45 Dose: 100 mls Nicardipine HCl 50 mg/ Sodium (Chloride) 250 mls @ 0 mls/hr IVPB INF PRN; Protocol PRN Reason: SBP > 150 or DBP > 90 Last Admin: 09/12/18 21:02 Dose: 250 mls Influenza Virus Vaccine Quadrival (Fluzone Quad [id number] Syringe) 0.5 ml IM .ONCE ONE Stop: 09/13/18 09:01 Labetalol HCl (Normodyne) 10 mg SLOW IVP Q4H PRN PRN Reason: SBP > 150 or DBP > 90 Lorazepam (Ativan) 2 mg SLOW IVP Q1H PRN PRN Reason: Breakthrough agitation Stop: 10/10/18 22:13 Last Admin: 09/12/18 11:44 Dose: 2 mg Magnesium Oxide (Magnesium Oxide) 400 mg PO BIDPRN PRN PRN Reason: FOR SERUM MAG 1.4 - 2.0 Magnesium Oxide (Magnesium Oxide) 800 mg PO PRN PRN PRN Reason: FOR SERUM MAG < 1.4 Mannitol (Mannitol) 100 gm IV Q6H PRN PRN Reason: ICP Management Miscellaneous Medication (Ventilator Sedation Protocol) 1 each FS ONE [place] Stop: 10/10/18 22:01 Miscellaneous Medication (Phos-Nak) 1 pkt PO TIDPRN PRN PRN Reason: FOR PHOS LEVEL 1.0 - 1.8 Miscellaneous Medication (Phos-Nak) 2 pkt PO TIDPRN PRN PRN Reason: FOR PHOS LEVEL 0.5 - 1.0 Morphine Sulfate (Morphine) 2 mg SLOW IVP Q1H PRN PRN Reason: BREAKTHROUGH PAIN/Agitation Stop: 10/10/18 22:13 Discontinue Previous Narcotic Pain Medications And Benzodiazepines 1 each FS .ONE [place] Stop: 10/10/18 22:13 Ccu Electrolyte (Replacement Protocol) 0 each FS PRN PRN PRN Reason: FOR ELECTROLYTE REPLACEMENT Pneumococcal 13-Valent Conj Vacc (Prevnar) 0.5 ml IM .ONCE ONE Stop: 09/13/18 09:01 Potassium Chloride (K-Dur) 40 meq PO ASDIR PRN PRN Reason: FOR SERUM K+ 2.5 - 3.5 Potassium Chloride (Klor-Con) 40 meq PER TUBE ASDIR PRN PRN Reason: FOR SERUM K+ 2.5-3.5 Propofol (Diprivan) 1,000 mg IV INF PRN; Protocol PRN Reason: TO ACHIEVE GOAL RASS Stop: 10/10/18 22:13 Last Admin: 09/12/18 06:25 Dose: 1,000 mg Sodium Chloride (Flush - Normal Saline) 10 ml IVF PRN PRN PRN Reason: Saline Flush
[2018-09-12 22:42] LABS: Potassium 2.9 mmol/L (3.5-5.1)
--- NOTE | 2018-09-12 22:42 | EKG ---
Test Reason : Blood Pressure : / mmHG Vent. Rate : 072 BPM Atrial Rate : 072 BPM P-R Int : 198 ms QRS Dur : 174 ms QT Int : 492 ms P-R-T Axes : 053 -07 167 degrees QTc Int : 538 ms Normal sinus rhythm Left bundle branch block Abnormal ECG When compared with ECG of 10-SEP-2018 20:05, (Unconfirmed) No significant change was found Confirmed by JIM LI, . SEarle ([id number]) on 09/12/2018 10:41:50 PM Referred By: MONTRELL Confirmed By:DR. Tahira FERNANDEZ MD
[2018-09-13 07:05] LABS: Anion Gap 11 mmol/L (10-20); BUN (Urea Nitrogen) 26 mg/dL (8.4-25.7); Calc. Creatinine Clearance 87 mL/min (70-130); Calcium 9.4 mg/dL (7.8-10.44); Carbon Dioxide 24 mmol/L (22-29); Chloride 112 mmol/L (98-107); Estimated GFR-MDRD 64; Glucose 145 mg/dL (70-105); Potassium 3.2 mmol/L (3.5-5.1); Sodium 144 mmol/L (136-145)
[2018-09-13 07:10] LABS: Actual Bicarbonate (HCO3a) 25.2 mEq/L (22-28); CO2 Tension 31.4 mmHg (35.0-45.0); Calcium, Ionized 1.18 mmol/L (1.12-1.30); Carboxyhemoglobin (COHb) 1.2 gm% (0.0-3.0); Hemoglobin (Hb) 13.1 g/dL (14.0-18.0); O2 Tension (PaO2) 93.2 mmHg (> 80.0); Potassium - ABG Lab 3.06 mmol/L (3.70-5.30); pH, Arterial 7.52 (7.35-7.45)
[2018-09-13 07:12] LABS: Puncture Site RRA
[2018-09-13 07:20] LABS: Mean Corpuscular HGB CONC 33.8 g/dL (32.0-36.0); Mean Corpuscular Hemoglobin 31.1 pg (27.0-31.0); Mean Platelet Volume 9.7 fL (7.4-10.4); Platelet Count 205 thou/uL (130-400); Red Blood Cell (RBC) Count 4.18 mill/uL (4.70-6.10); White Blood Cell (WBC) Count 14.8 thou/uL (4.8-10.8)
[2018-09-13 07:43] LABS: Band 2 % (5-11); Large Platelets SLIGHT; Lymphocytes 6 % (21-51); MDiff Complete? YES; Macrocytosis SLIGHT = 6-15 cells (100X) (0-5/hpf); Microcytosis SLIGHT = 6-15 cells (100X) (0-5/hpf); Monocytes 12 % (0-10); Neutrophil 80 % (42-75); PLT Morphology Comment Appears Adequate; Polychromasia SLIGHT = 2-3 cells (100X) (0-2/hpf)
--- NOTE | 2018-09-13 08:10 | RAD ---
CHEST 1 VIEW: Date: 09/13/18 INDICATION: Intubation. COMPARISON: Prior exam dated 09/12/18. IMPRESSION: Patient remains intubated with gastric catheter placement. No pneumothorax is evident. Lungs are teo r. POS: [facility]
[2018-09-13] MEDS ORDERED: Prevnar 13-Val Conj/PF 0.5 ML SYRINGE IM ONE (09:00)
--- NOTE | 2018-09-13 09:16 | ULT ---
ULTRASOUND DOPPLER DUPLEX CAROTID: Date: 09/13/18 HISTORY: 58-year-old male with CVA. TECHNIQUE: Dill scale, color flow, and spectral analysis of major arteries of the neck. FINDINGS: The right carotid is difficult to image because of patient's position and immobility. There is at stacy st moderate, and possibly severe, plaque in the proximal right internal carotid, including carotid bu lb. The origin of the right internal carotid artery is at least partially obscured by shadowing from the calcified plaque. The highest peak systolic velocity available in the right internal carotid fabrice ry is 50 cm/s, with an end-diastolic velocity of 15 cm/s. ICA/CCA ratio is 0.7 on the right. Right vertebral artery flow is antegrade. There is moderate focal calcified plaque at the origin of the left internal carotid artery. Highest p eak systolic velocity in the left internal carotid artery is 65 cm/s, with an end-diastolic velocity of 8 cm/s. ICA/CCA ration is 0.7 on the left. Left vertebral artery flow is antegrade. IMPRESSION: 1. Technically difficult evaluation of the right carotid. 2. Bilateral atheromatous proximal internal carotid artery plaque, right greater than left. 3. Although there is no definitive evidence of hemodynamically significant stenosis, the origin of t he right internal carotid is partially obscured by shadowing from the plaque. POS: [facility]
[2018-09-13] MEDS: Amlodipine 5 MG TAB PER TUBE SCH (10:00)
--- NOTE | 2018-09-13 10:24 | PRG ---
DATE OF SERVICE: 09/13/2018 TIME SPENT: 35 minutes of critical care time. SUBJECTIVE: The patient remains intubated on mechanical ventilation. He will move his right side spontaneously. He is hemiplegic on the left. He remains intubated on mechanical ventilation. OBJECTIVE: VITAL SIGNS: Temperature is 100.3, pulse 73, blood pressure 130/62, O2 saturation 100%, 24-hour intake 2727, output 2645. HEENT: Pupils are sluggishly reactive. Oropharynx is clear. NECK: No JVD. LUNGS: Clear anteriorly bilaterally. CARDIOVASCULAR: S1, S2, ranging between bradycardic and normal sinus. ABDOMEN: Soft. EXTREMITIES: No edema. LABORATORY DATA: Sodium 144, potassium 3.3, chloride 112, CO2 of 24, BUN 26, creatinine 1.3, glucose 145. ABG; pH 7.52, pCO2 of 31, PO2 of 93, and SIMV rate of 10, tidal volume 450, PEEP FiO2 of 40%. White blood cell count 14.8, hematocrit 38.4, and platelet count 205. ASSESSMENT: 1. Hemorrhagic right-sided stroke after administration of tPA while the patient was profoundly hypertensive. 2. Acute respiratory failure requiring mechanical ventilation. 3. Hemiplegia. 4. Mild hypokalemia. PLAN: 1. The patient will begin enteral tube feeds. 2. I have restarted some IV fluids with potassium. 3. He is not weanable at this time secondary to his neurologic status. I am preferring to keep him slightly alkalotic on his pH given the extensive amount of bleeding in his head. I am somewhat worried about possible development of herniation type syndrome given the bradycardia that we have seen intermittently. Neurosurgery is following with us on this case. Job ID: [id number]
[2018-09-13] MEDS: cloNIDine 0.1 MG TAB PO PRN ×2 (13:24→22:12)
[2018-09-13] MEDS: 1/2 NS w/KCL 20 mEq 1,000 ML IV SCH (13:28)
[2018-09-13] MEDS ORDERED: Pancrelipase DR 12000 1 CAP FS PRN (14:41)
[2018-09-13] MEDS ORDERED: Sodium Bicarbonate Tab 325 MG TAB PER TUBE PRN (14:41)
--- NOTE | 2018-09-13 15:10 | PDOC.PN ---
- Subjective Encounter Start Date: 09/13/18 Encounter Start Time: 09:45 -: non-verbal Patient seen and examined for acute CVA. No new complaints. No overnight events - Objective Resuscitation Status - Order Detail: 09/10/18 21:50 Resuscitation Status Routine Resuscitation Status: FULL: Full Resuscitation MAR Reviewed: Yes Vital Signs & Weight: Vital Signs (12 hours) Temp Pulse Pulse Pulse Resp BP BP 09/13/18 13:24 179/85 H 09/13/18 13:05 86 09/13/18 12:00 99.8 F H 19 09/13/18 10:59 49 L 85 138/73 09/13/18 10:32 62 09/13/18 10:00 68 18 129/70 09/13/18 08:00 99.8 F H 18 09/13/18 06:57 87 09/13/18 06:00 100.3 F H 28 H 09/13/18 04:00 100.9 F H 21 H BP Pulse Ox Pulse Ox Pulse Ox 09/13/18 13:24 09/13/18 13:05 09/13/18 12:00 09/13/18 10:59 173/94 H 100 100 09/13/18 10:32 09/13/18 10:00 09/13/18 08:00 100 09/13/18 06:57 09/13/18 06:00 09/13/18 04:00 Weight Admit Weight 201 lb Weight 201 lb 0.985 oz Most Recent Monitor Data Heart Rate from ECG 73 NIBP 179/85 NIBP BP-Mean 116 Respiration from ECG 19 SpO2 100 I&O: 09/12/18 09/13/18 09/14/18 06:59 06:59 06:59 Intake Total 1995 2727.3 170 Output Total 5 2645 765 Balance -889 82.3 -595 Result Diagrams: 09/13/18 06:38 09/13/18 06:38 Additional Labs: Accuchecks 09/12/18 21:59 POC Glucose 134 H EKG Reviewed by me: Yes (Tele SR) Phys Exam - Physical Examination Constitutional: NAD Respiratory: no wheezing, no rhonchi Cardiovascular: RRR, no rub Gastrointestinal: soft, non-tender, positive bowel sounds Musculoskeletal: no edema Neuro - Cannot assess due to current mentation Dx/Plan (1) Acute CVA (cerebrovascular accident) Code(s): I63.9 - CEREBRAL INFARCTION, UNSPECIFIED Status: Acute Comment: s/ p TPA (2) Hypokalemia Code(s): E87.6 - HYPOKALEMIA Status: Acute (3) Acute respiratory failure Code(s): J96.00 - ACUTE RESPIRATORY FAILURE, UNSP W HYPOXIA OR HYPERCAPNIA Status: Acute Comment: due to Acute CVA/Encephalopathy (4) Intraventricular hemorrhage Code(s): I61.5 - NONTRAUMATIC INTRACEREBRAL HEMORRHAGE, INTRAVENTRICULAR Status: Acute (5) Obesity (BMI 30.0-34.9) Code(s): E66.9 - OBESITY, UNSPECIFIED Status: Chronic (6) Hypertension Code(s): I10 - ESSENTIAL (PRIMARY) HYPERTENSION Status: Chronic (7) Prostate cancer Code(s): C61 - MALIGNANT NEOPLASM OF PROSTATE Status: Chronic - Plan DVT proph w/SCDs * Replace Potassium * On Cardene drip * Neurosurgery following * Not on antiplatelets or Lovenox due to intracranial bleed * Cont supportive care * AM labs * Cont other meds as below Review of Systems - Review of Systems Other: Cannot obtain due to current mentation. - Medications/Allergies Allergies/Adverse Reactions: Allergies Allergy/AdvReac Type Severity Reaction Status Date / Time No Known Allergies Allergy Unverified 09/10/18 22:04 Medications: Current Medications Acetaminophen (Tylenol) 650 mg PO Q6H PRN PRN Reason: Fever > 101 or Headache Al Hydroxide/Mg Hydroxide (Maalox) 30 ml PO QIDPRN PRN PRN Reason: Dyspepsia Amlodipine Besylate (Norvasc) 5 mg PER TUBE DAILY [place] Last Admin: 09/13/18 10:00 Dose: 5 mg Lipase/Protease/Amylase ([place] [id number]) 1 cap FS .PER PROTOCOL PRN PRN Reason: TUBE OCCLUSION PROTOCOL Clonidine (Catapres) 0.1 mg PO Q4H PRN PRN Reason: SBP GREATER THAN 160 Last Admin: 09/13/18 13:24 Dose: 0.1 mg Docusate Sodium (Colace) 100 mg PO BIDPRN PRN PRN Reason: Constipation Sodium Chloride (Sodium Chloride 3%) 500 mls @ 50 mls/hr IVPB PRN PRN PRN Reason: ICP Management Fentanyl Citrate 2,000 mcg/ (Sodium Chloride) 100 mls @ 0 mls/hr IV INF [place]; Protocol Stop: 10/10/18 22:13 Fentanyl Citrate (Fentanyl Bolus) 250 mls @ 0 mls/hr IVPB PRN PRN PRN Reason: Breakthrough pain/agitation Stop: 10/10/18 22:13 Potassium Chloride 40 meq/ (Sodium Chloride) 270 mls @ 135 mls/hr IVPB ASDIR PRN PRN Reason: FOR SERUM K+ 2.5 - 3.5 Last Admin: 09/12/18 05:40 Dose: 270 mls Potassium Chloride 40 meq/ (Device) 100 mls @ 50 mls/hr IVPB ASDIR PRN PRN Reason: FOR SERUM K+ 2.5 - 3.5 Last Admin: 09/12/18 23:07 Dose: 100 mls Magnesium Sulfate 1 gm/ Sodium (Chloride) 102 mls @ 102 mls/hr IV PRN PRN PRN Reason: MAG LEVEL 1.4 - 2.0 Magnesium Sulfate 2 gm/ Device 100 mls @ 100 mls/hr IVPB ASDIR PRN PRN Reason: MAGNESIUM < 1.4 Potassium Phosphate 9 mmol/ (Sodium Chloride) 103 mls @ 25.75 mls/hr IVPB ASDIR PRN PRN Reason: Phosphate 1.0-1.8 Potassium Phosphate 12 mmol/ (Sodium Chloride) 254 mls @ 63.5 mls/hr IV ASDIR PRN PRN Reason: Serum phosphate 0.5-0.9 Potassium Phosphate 15 mmol/ (Sodium Chloride) 255 mls @ 63.75 mls/hr IV ASDIR PRN PRN Reason: Serum Phos < 0.5 Dexmedetomidine HCl 400 mcg/ (Sodium Chloride) 100 mls @ 0 mls/hr IVPB INF [place] ; Protocol Last Admin: 09/13/18 13:49 Dose: 100 mls Ceftriaxone Sodium 2 gm/ (Sodium Chloride) 100 mls @ 200 mls/hr IVPB Q24HR [place] Last Admin: 09/12/18 20:45 Dose: 100 mls Nicardipine HCl 50 mg/ Sodium (Chloride) 250 mls @ 0 mls/hr IVPB INF PRN; Protocol PRN Reason: SBP > 150 or DBP > 90 Last Admin: 09/12/18 21:02 Dose: 250 mls Potassium Chloride/Sodium Chloride (1/2 Ns W/Kcl 20 Meq) 1,000 mls @ 75 mls/hr IV .[id number] [place] Last Admin: 09/13/18 13:28 Dose: 1,000 mls Labetalol HCl (Normodyne) 10 mg SLOW IVP Q4H PRN PRN Reason: SBP > 150 or DBP > 90 Lorazepam (Ativan) 2 mg SLOW IVP Q1H PRN PRN Reason: Breakthrough agitation Stop: 10/10/18 22:13 Last Admin: 09/12/18 11:44 Dose: 2 mg Magnesium Oxide (Magnesium Oxide) 400 mg PO BIDPRN PRN PRN Reason: FOR SERUM MAG 1.4 - 2.0 Magnesium Oxide (Magnesium Oxide) 800 mg PO PRN PRN PRN Reason: FOR SERUM MAG < 1.4 Mannitol (Mannitol) 100 gm IV Q6H PRN PRN Reason: ICP Management Miscellaneous Medication (Ventilator Sedation Protocol) 1 each FS ONE [place] Stop: 10/10/18 22:01 Miscellaneous Medication (Phos-Nak) 1 pkt PO TIDPRN PRN PRN Reason: FOR PHOS LEVEL 1.0 - 1.8 Miscellaneous Medication (Phos-Nak) 2 pkt PO TIDPRN PRN PRN Reason: FOR PHOS LEVEL 0.5 - 1.0 Morphine Sulfate (Morphine) 2 mg SLOW IVP Q1H PRN PRN Reason: BREAKTHROUGH PAIN/Agitation Stop: 10/10/18 22:13 Discontinue Previous Narcotic Pain Medications And Benzodiazepines 1 each FS .ONE [place] Stop: 10/10/18 22:13 Ccu Electrolyte (Replacement Protocol) 0 each FS PRN PRN PRN Reason: FOR ELECTROLYTE REPLACEMENT Potassium Chloride (K-Dur) 40 meq PO ASDIR PRN PRN Reason: FOR SERUM K+ 2.5 - 3.5 Potassium Chloride (Klor-Con) 40 meq PER TUBE ASDIR PRN PRN Reason: FOR SERUM K+ 2.5-3.5 Last Admin: 09/13/18 13:16 Dose: 40 meq Propofol (Diprivan) 1,000 mg IV INF PRN; Protocol PRN Reason: TO ACHIEVE GOAL RASS Stop: 10/10/18 22:13 Last Admin: 09/12/18 06:25 Dose: 1,000 mg Sodium Bicarbonate (Bicarbonate, Sodium) 650 mg PER TUBE .PER PROTOCOL PRN PRN Reason: ENTERAL TUBE OCCLUSION Sodium Chloride (Flush - Normal Saline) 10 ml IVF PRN PRN PRN Reason: Saline Flush
[2018-09-13] MEDS: niCARdipine HCl 50 MG in Sodium Chloride 0.9% 250 ML 230 ML IVPB PRN (18:38)
[2018-09-13] MEDS: Acetaminophen 325 MG TAB PO PRN (18:56)
[2018-09-13] MEDS: cefTRIAXone\\ROCEPHIN 2 GM in Sodium Chloride 0.9% 100 ML IVPB SCH (18:56)
--- NOTE | 2018-09-13 20:32 | PRG ---
DATE OF SERVICE: 09/13/2018 SUBJECTIVE: This is a Neurology followup for a large right hemisphere infarct and left basal ganglia intracranial hemorrhage. The patient still cannot follow any commands. He is very very obtunded and there have not been any seizures. He is getting tube feedings. OBJECTIVE: VITAL SIGNS: Blood pressure 154/75, pulse 46, respiratory rate 21. HEENT: Negative. Pupils are 2 mm and reactive bilaterally. He does not focus on the examiner. 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 Motor of his arms and legs; he moves his right side spontaneously, but not to command. He is noted to cross his right leg over his left leg. He occasionally moves his right hand, which looks purposeful. He moves it toward his ET tube; so for that reason, his right hand had to be restrained because we do not want it to be dislodged. He does not follow any commands with his right side. The left side of the body does not show any movement in the arm or in the leg. DTRs are brisk, 3+ throughout. The right toe is downgoing. The left toe is upgoing. REVIEW OF TEST: On 09/13/2018, shows a white count of 14.8, hemoglobin 13.0, hematocrit 38.4, and platelet count 205,000; sodium is 144, potassium 3.2, chloride 112, CO2 of 24, anion gap is 11, BUN is 26, creatinine is 1.16, estimated GFR is 64, calcium is 9.4, glucose is 112. Blood gas on 09/13/2018 showed a pH of 7.52, pCO2 of 31.4, pO2 93.2, and O2 sat 98.2%. The carotid Doppler done on 09/13/2018 showed that it was a technically difficult study. There was at least moderate and possibly severe plaque in the proximal right internal carotid including the carotid bulb. I could not get a good look at that area. The left internal carotid showed moderate focal calcified plaque. So the conclusion is that the origin of the right internal carotid is partially obscured and a good study could not be obtained. An echocardiogram has been ordered and the result is pending. Chest x-ray from 09/13/2018 showed that he is still intubated with a gastric catheter placement, no pneumothorax, and the lungs are clear on chest x-ray, this was on AP. MRI of the brain that was done on 09/12/2018 showed the large cerebral infarction in the right middle cerebral artery consistent with extensive right middle cerebral artery acute infarction. There was also left basal ganglia hemorrhage with some layers of intraventricular blood in the posterior horn of the left lateral ventricle. There was some mild right to left midline shift. MEDICATIONS: Pertinent medications are: 1. Amlodipine. 2. Ceftriaxone. 3. Dexmedetomidine. 4. Mannitol 100 g IV q.6 hours. Note that Neurosurgery has been following him due to the mass effect of the large cerebral infarction. IMPRESSION: Large right cerebral infarction and left intracerebral basal ganglia hemorrhage with some extension into the left ventricles. Note that the patient is very lethargic and not following commands at all nor opening eyes. He does have bilateral brain insults including a large right hemisphere infarction and a left basal ganglia area hemorrhage. This could put him into very obtunded state due to bilateral hemisphere involvement. PLAN: An EEG has been ordered. Also, we may consider followup CAT scan testing in a couple of days, also EEG, also consider a CTA of the head and the neck to further investigate the circulation and particularly the right internal carotid. Job ID: [id number]
[2018-09-13] MEDS: Lorazepam 2 MG/ML VIAL SLOW IVP PRN (20:40)
[2018-09-14] MEDS: niCARdipine HCl 50 MG in Sodium Chloride 0.9% 250 ML 230 ML IVPB PRN ×4 (01:06→23:28)
[2018-09-14] MEDS: Acetaminophen 325 MG TAB PO PRN (01:50)
[2018-09-14 04:53] LABS: Anion Gap 13 mmol/L (10-20); BUN (Urea Nitrogen) 31 mg/dL (8.4-25.7); Calc. Creatinine Clearance 86 mL/min (70-130); Calcium 9.3 mg/dL (7.8-10.44); Carbon Dioxide 22 mmol/L (22-29); Chloride 113 mmol/L (98-107); Estimated GFR-MDRD 63; Glucose 140 mg/dL (70-105); Magnesium 2.5 mg/dL (1.6-2.6); Potassium 3.2 mmol/L (3.5-5.1); Sodium 145 mmol/L (136-145)
[2018-09-14 05:52] LABS: Band 3 % (5-11); Hemoglobin 11.8 g/dL (14.0-18.0); Lymphocytes 7 % (21-51); MDiff Complete? YES; Mean Corpuscular HGB CONC 33.7 g/dL (32.0-36.0); Mean Corpuscular Hemoglobin 31.1 pg (27.0-31.0); Mean Corpuscular Volume 92.4 fL (78.0-98.0); Mean Platelet Volume 9.7 fL (7.4-10.4); Monocytes 12 % (0-10); Neutrophil 77 % (42-75); PLT Morphology Comment Appears Adequate; Platelet Count 221 thou/uL (130-400); RBC Distribution Width 11.8 % (11.5-14.5); RBC Morphology Normal; Reactive Lymphocytes 1 % (0-10); Red Blood Cell (RBC) Count 3.78 mill/uL (4.70-6.10)
[2018-09-14 07:27] LABS: Actual Bicarbonate (HCO3a) 24.2 mEq/L (22-28); Base Excess (BEa) 1.8 mEq/L (-2.0 to +3.0); CO2 Tension 31.3 mmHg (35.0-45.0); Calcium, Ionized 1.18 mmol/L (1.12-1.30); Carboxyhemoglobin (COHb) 0.8 gm% (0.0-3.0); Hemoglobin (Hb) 12.7 g/dL (14.0-18.0); O2 Tension (PaO2) 126.2 mmHg (> 80.0); Potassium - ABG Lab 3.12 mmol/L (3.70-5.30); pH, Arterial 7.51 (7.35-7.45)
[2018-09-14 07:28] LABS: ALV-art Gradient 119.875 (0-20); Puncture Site RRA
[2018-09-14] MEDS: Amlodipine 5 MG TAB PER TUBE SCH ×2 (08:08→20:22)
[2018-09-14] MEDS: cloNIDine 0.1 MG TAB PO PRN ×3 (08:09→22:44)
--- NOTE | 2018-09-14 09:23 | RAD ---
CHEST ONE VIEW: INDICATIONS: Intubation. COMPARISON: 09/13/2018 FINDINGS/IMPRESSION: The endotracheal tube and gastric catheter are unchanged. The lungs remain clear. The cardiomediast inal silhouette is within normal limits. No pneumothorax is evident. POS: [facility]
[2018-09-14] MEDS: 1/2 NS w/KCL 20 mEq 1,000 ML IV SCH ×2 (10:46→22:47)
[2018-09-14] MEDS: cefTRIAXone\\ROCEPHIN 2 GM in Sodium Chloride 0.9% 100 ML IVPB SCH (18:56)
--- NOTE | 2018-09-14 19:18 | PDOC.PN ---
- Subjective Encounter Start Date: 09/14/18 Encounter Start Time: 14:15 Patient seen and examined for Acute CVA. On Vent. No overnight events - Objective Resuscitation Status - Order Detail: 09/10/18 21:50 Resuscitation Status Routine Resuscitation Status: FULL: Full Resuscitation MAR Reviewed: Yes Vital Signs & Weight: Vital Signs (12 hours) Temp Pulse Resp Pulse Ox 09/14/18 18:48 50 L 09/14/18 18:00 20 09/14/18 17:00 100.0 F H 09/14/18 16:00 22 H 09/14/18 14:17 59 L 09/14/18 14:00 21 H 09/14/18 12:00 99.5 F 17 09/14/18 10:42 76 09/14/18 10:00 20 09/14/18 08:00 99.1 F 15 100 09/14/18 07:56 72 Weight Admit Weight 201 lb Weight 196 lb 10.437 oz Most Recent Monitor Data Heart Rate from ECG 55 NIBP 134/73 NIBP BP-Mean 93 Respiration from ECG 17 SpO2 100 I&O: 09/13/18 09/14/18 09/15/18 06:59 06:59 06:59 Intake Total 2727.3 1694 1843 Output Total 2645 2845 2775 Balance 82.3 -1151 -932 Result Diagrams: 09/14/18 04:10 09/14/18 04:10 Additional Labs: Accuchecks 09/14/18 09/14/18 09/14/18 16:50 10:35 04:24 POC Glucose 114 H 133 H 116 H 09/13/18 22:29 POC Glucose 141 H EKG Reviewed by me: Yes (Tele SR) Phys Exam - Physical Examination Constitutional: NAD (on Vent - not following commands) Respiratory: no wheezing, no rhonchi dec AE at bases Cardiovascular: RRR, no rub Gastrointestinal: soft, non-tender, positive bowel sounds Musculoskeletal: no edema Neuro/Psych - Cannot assess due to current mentation Dx/Plan (1) Acute CVA (cerebrovascular accident) Code(s): I63.9 - CEREBRAL INFARCTION, UNSPECIFIED Status: Acute Comment: s/ p TPA (2) Acute respiratory failure Code(s): J96.00 - ACUTE RESPIRATORY FAILURE, UNSP W HYPOXIA OR HYPERCAPNIA Status: Acute Comment: due to Acute CVA/Encephalopathy (3) Hypokalemia Code(s): E87.6 - HYPOKALEMIA Status: Acute (4) Intraventricular hemorrhage Code(s): I61.5 - NONTRAUMATIC INTRACEREBRAL HEMORRHAGE, INTRAVENTRICULAR Status: Acute (5) Obesity (BMI 30.0-34.9) Code(s): E66.9 - OBESITY, UNSPECIFIED Status: Chronic (6) Hypertension Code(s): I10 - ESSENTIAL (PRIMARY) HYPERTENSION Status: Chronic Comment: uncontrolled (7) Prostate cancer Code(s): C61 - MALIGNANT NEOPLASM OF PROSTATE Status: Chronic - Plan DVT proph w/SCDs * Change Amlodipine to 5 mg BID * Add Hydralazine * Wean Cardene drip * Replace Potassium * CT brain and EEG in AM per Neurology * Neurosurgery following * Not on antiplatelets or Lovenox due to intracranial bleed * Cont supportive care * AM labs * Cont other meds as below Review of Systems - Review of Systems Other: Cannot obtain due to current mentation - Medications/Allergies Allergies/Adverse Reactions: Allergies Allergy/AdvReac Type Severity Reaction Status Date / Time No Known Allergies Allergy Unverified 09/10/18 22:04 Medications: Current Medications Acetaminophen (Tylenol) 650 mg PO Q6H PRN PRN Reason: Fever > 101 or Headache Last Admin: 09/14/18 01:50 Dose: 650 mg Al Hydroxide/Mg Hydroxide (Maalox) 30 ml PO QIDPRN PRN PRN Reason: Dyspepsia Amlodipine Besylate (Norvasc) 5 mg PER TUBE BID [place] Lipase/Protease/Amylase (Alexandra Foreman [id number]) 1 cap FS .PER PROTOCOL PRN PRN Reason: TUBE OCCLUSION PROTOCOL Clonidine (Catapres) 0.1 mg PO Q4H PRN PRN Reason: SBP GREATER THAN 160 Last Admin: 09/14/18 12:49 Dose: 0.1 mg Docusate Sodium (Colace) 100 mg PO BIDPRN PRN PRN Reason: Constipation Hydralazine HCl (Apresoline) 10 mg SLOW IVP Q4H PRN PRN Reason: SBP GREATER THAN 160 Hydralazine HCl (Apresoline) 25 mg PER TUBE BID [place] Sodium Chloride (Sodium Chloride 3%) 500 mls @ 50 mls/hr IVPB PRN PRN PRN Reason: ICP Management Fentanyl Citrate 2,000 mcg/ (Sodium Chloride) 100 mls @ 0 mls/hr IV INF [place]; Protocol Stop: 10/10/18 22:13 Fentanyl Citrate (Fentanyl Bolus) 250 mls @ 0 mls/hr IVPB PRN PRN PRN Reason: Breakthrough pain/agitation Stop: 10/10/18 22:13 Potassium Chloride 40 meq/ (Sodium Chloride) 270 mls @ 135 mls/hr IVPB ASDIR PRN PRN Reason: FOR SERUM K+ 2.5 - 3.5 Last Admin: 09/12/18 05:40 Dose: 270 mls Potassium Chloride 40 meq/ (Device) 100 mls @ 50 mls/hr IVPB ASDIR PRN PRN Reason: FOR SERUM K+ 2.5 - 3.5 Last Admin: 09/12/18 23:07 Dose: 100 mls Magnesium Sulfate 1 gm/ Sodium (Chloride) 102 mls @ 102 mls/hr IV PRN PRN PRN Reason: MAG LEVEL 1.4 - 2.0 Magnesium Sulfate 2 gm/ Device 100 mls @ 100 mls/hr IVPB ASDIR PRN PRN Reason: MAGNESIUM < 1.4 Potassium Phosphate 9 mmol/ (Sodium Chloride) 103 mls @ 25.75 mls/hr IVPB ASDIR PRN PRN Reason: Phosphate 1.0-1.8 Potassium Phosphate 12 mmol/ (Sodium Chloride) 254 mls @ 63.5 mls/hr IV ASDIR PRN PRN Reason: Serum phosphate 0.5-0.9 Potassium Phosphate 15 mmol/ (Sodium Chloride) 255 mls @ 63.75 mls/hr IV ASDIR PRN PRN Reason: Serum Phos < 0.5 Dexmedetomidine HCl 400 mcg/ (Sodium Chloride) 100 mls @ 0 mls/hr IVPB INF [place] ; Protocol Last Admin: 09/14/18 12:50 Dose: 100 mls Ceftriaxone Sodium 2 gm/ (Sodium Chloride) 100 mls @ 200 mls/hr IVPB Q24HR [place] Last Admin: 09/14/18 18:56 Dose: 100 mls Nicardipine HCl 50 mg/ Sodium (Chloride) 250 mls @ 0 mls/hr IVPB INF PRN; Protocol PRN Reason: SBP > 150 or DBP > 90 Last Admin: 09/14/18 18:57 Dose: 250 mls Potassium Chloride/Sodium Chloride (1/2 Ns W/Kcl 20 Meq) 1,000 mls @ 75 mls/hr IV .[id number] [place] Last Admin: 09/14/18 10:46 Dose: 1,000 mls Labetalol HCl (Normodyne) 10 mg SLOW IVP Q4H PRN PRN Reason: Systolic BP > 160 Lorazepam (Ativan) 2 mg SLOW IVP Q1H PRN PRN Reason: Breakthrough agitation Stop: 10/10/18 22:13 Last Admin: 09/13/18 20:40 Dose: 2 mg Magnesium Oxide (Magnesium Oxide) 400 mg PO BIDPRN PRN PRN Reason: FOR SERUM MAG 1.4 - 2.0 Magnesium Oxide (Magnesium Oxide) 800 mg PO PRN PRN PRN Reason: FOR SERUM MAG < 1.4 Mannitol (Mannitol) 100 gm IV Q6H PRN PRN Reason: ICP Management Miscellaneous Medication (Ventilator Sedation Protocol) 1 each FS ONE [place] Stop: 10/10/18 22:01 Miscellaneous Medication (Phos-Nak) 1 pkt PO TIDPRN PRN PRN Reason: FOR PHOS LEVEL 1.0 - 1.8 Miscellaneous Medication (Phos-Nak) 2 pkt PO TIDPRN PRN PRN Reason: FOR PHOS LEVEL 0.5 - 1.0 Morphine Sulfate (Morphine) 2 mg SLOW IVP Q1H PRN PRN Reason: BREAKTHROUGH PAIN/Agitation Stop: 10/10/18 22:13 Discontinue Previous Narcotic Pain Medications And Benzodiazepines 1 each FS .ONE [place] Stop: 10/10/18 22:13 Ccu Electrolyte (Replacement Protocol) 0 each FS PRN PRN PRN Reason: FOR ELECTROLYTE REPLACEMENT Potassium Chloride (K-Dur) 40 meq PO ASDIR PRN PRN Reason: FOR SERUM K+ 2.5 - 3.5 Potassium Chloride (Klor-Con) 40 meq PER TUBE ASDIR PRN PRN Reason: FOR SERUM K+ 2.5-3.5 Last Admin: 09/14/18 08:39 Dose: 40 meq Propofol (Diprivan) 1,000 mg IV INF PRN; Protocol PRN Reason: TO ACHIEVE GOAL RASS Stop: 10/10/18 22:13 Last Admin: 09/12/18 06:25 Dose: 1,000 mg Sodium Bicarbonate (Bicarbonate, Sodium) 650 mg PER TUBE .PER PROTOCOL PRN PRN Reason: ENTERAL TUBE OCCLUSION Sodium Chloride (Flush - Normal Saline) 10 ml IVF PRN PRN PRN Reason: Saline Flush
[2018-09-14] MEDS: hydrALAZINE 25 MG TAB PER TUBE SCH (20:21)
[2018-09-14] MEDS ORDERED: cloNIDine 0.1 MG TAB PER TUBE SCH (21:00)
[2018-09-15] MEDS: Acetaminophen 325 MG TAB PO PRN ×2 (00:37→17:26)
[2018-09-15] MEDS: niCARdipine HCl 50 MG in Sodium Chloride 0.9% 250 ML 230 ML IVPB PRN ×3 (03:44→19:37)
[2018-09-15 05:55] LABS: Anion Gap 14 mmol/L (10-20); BUN (Urea Nitrogen) 29 mg/dL (8.4-25.7); Calc. Creatinine Clearance 98 mL/min (70-130); Calcium 9.9 mg/dL (7.8-10.44); Carbon Dioxide 20 mmol/L (22-29); Chloride 113 mmol/L (98-107); Eosinophils 1 % (0-10); Estimated GFR-MDRD 78; Glucose 133 mg/dL (70-105); Hemoglobin 13.5 g/dL (14.0-18.0); Lymphocytes 19 % (21-51); MDiff Complete? YES; Mean Corpuscular HGB CONC 33.8 g/dL (32.0-36.0); Mean Corpuscular Hemoglobin 31.3 pg (27.0-31.0); Mean Corpuscular Volume 92.8 fL (78.0-98.0); Mean Platelet Volume 9.5 fL (7.4-10.4); Monocytes 14 % (0-10); Neutrophil 66 % (42-75); PLT Morphology Comment Appears Adequate; Platelet Count 289 thou/uL (130-400); RBC Distribution Width 11.9 % (11.5-14.5); Sodium 144 mmol/L (136-145); White Blood Cell (WBC) Count 10.4 thou/uL (4.8-10.8)
[2018-09-15 07:05] LABS: Actual Bicarbonate (HCO3a) 23.9 mEq/L (22-28); Base Excess (BEa) 1.8 mEq/L (-2.0 to +3.0); CO2 Tension 30.2 mmHg (35.0-45.0); Calcium, Ionized 1.24 mmol/L (1.12-1.30); Carboxyhemoglobin (COHb) 0.7 gm% (0.0-3.0); Hemoglobin (Hb) 13.5 g/dL (14.0-18.0); O2 Tension (PaO2) 77.1 mmHg (> 80.0); Potassium - ABG Lab 2.89 mmol/L (3.70-5.30); pH, Arterial 7.52 (7.35-7.45)
[2018-09-15 07:14] LABS: Puncture Site LR
--- NOTE | 2018-09-15 07:49 | PRG ---
DATE OF SERVICE: 09/14/2018 This is 35 minutes of critical care time. SUBJECTIVE: The patient remains intubated on mechanical ventilation. He will move his right side, but is otherwise unresponsive to my commands. OBJECTIVE: VITAL SIGNS: On exam, his T-max was 101.8, currently 99.1, pulse ranging from the 40s to the 60s, blood pressure 109/64. A 24-hour intake 1694, output 2845. HEENT: Unremarkable. NECK: Without adenopathy or JVD. LUNGS: Coarse breath sounds. CARDIAC: S1 and S2. Bradycardic. ABDOMEN: Soft. EXTREMITIES: No edema. NEUROLOGICAL: He will move his right arm and right leg spontaneously. IMAGING DATA: His chest x-ray shows an endotracheal tube, but looks slightly high. His lungs go are clear. LABORATORY DATA: White blood cell count of 10, hematocrit of 34.9, and platelet count 221. PH 7.51, pCO2 of 31, pO2 of 126, SIMV rate 10, tidal volume 450, PEEP 5, pressure support 10, FiO2 of 40. Sodium 145, potassium 3.2, chloride 113, CO2 of 22, BUN 31, creatinine 1.2, and glucose 140. ASSESSMENT: 1. Status post hemorrhagic right-sided stroke after administration of tPA. 2. Hypertension. 3. Acute respiratory failure, requiring mechanical ventilation. 4. Hemiplegia. 5. Hypokalemia. PLAN: 1. The patient's neurologic status looks very poor. I think at best case, he is going to end up with tracheostomy and PEG tube placement assuming the patient's family wants to continue. He is going to be severely debilitated from this. 2. Replace potassium. 3. He is currently on antibiotics for positive urine culture. I think the current fever is probably [employer] in origin. Job ID: [id number]
--- NOTE | 2018-09-15 07:50 | CON ---
DATE OF CONSULTATION: 09/14/2018 The patient is currently being sedated on Precedex. To noxious stimulus, he squints and attempts to open his eyes, but does not quite open his eyes. He was briskly localizing with the right side. Overall, the neurologic exam seems reasonably consistent with previous exams given the sedation. A CT has been ordered for tomorrow, which seems reasonable. Job ID: [id number]
--- NOTE | 2018-09-15 07:51 | PRG ---
DATE OF SERVICE: 09/14/2018 HISTORY OF PRESENT ILLNESS: The patient is being followed up for large right hemisphere infarct and left basal ganglia intraventricular hemorrhage. The patient received tPA at outside hospital for the large infarction and had a hemorrhage on the other side of the brain. The patient is still intubated. He is still extremely obtunded and does not follow commands. His and son are present at this time. PHYSICAL EXAMINATION: VITAL SIGNS: Blood pressure is 150/70, pulse is 96, heart rate 47, O2 saturation is 100%. GENERAL: He is comatose and intubated. He intermittently moves his right side semi-purposefully, but not to command. He is intubated. NEUROLOGIC: Cranial nerves 2 through 12 showed his pupils are 2 mm and reactive. He has Roving eye movements. He does not fix or follow the light or the finger. Motor, he moves the right arm and leg spontaneously and semi-purposefully, but not to command. There is no movement of the left arm or left leg. DTRs are 2+. The right toe is downgoing. The left toe is upgoing. JOINTS: No swelling. SKIN: No rashes. HEENT: Negative except for the intubation. ABDOMEN: Nondistended. LUNGS: Appear clear. HEART: No gallops. LABORATORY AND DIAGNOSTIC DATA: Review of test results showed carotid Doppler, which was technically difficult and the right internal carotid was not visualized very well. The chest x-ray done on 09/14/2018 showed that the ET tube and gastric catheter were present and unchanged. The lungs looked clear. There was no pneumothorax. The brain MRI done on 09/12 showed the large cerebral infarction in the right middle cerebral territory, 5.1 x 9.7 cm. There was also intra-axial hemorrhage, was seen lateral to the basal ganglia on the left with some intraventricular blood layering in the posterior horn of the left lateral ventricle. There was mild [id number] midline shift. CURRENT MEDICATIONS: Shows that he is on Rocephin, he is on Catapres, he is on some sedation with fentanyl and Normodyne. Also he is receiving mannitol 100 mg IV q.6 hours due to the swelling and due to the large cerebral infarction. He is not on any convulsant medication, but no seizures have been seen. IMPRESSION: Status post very large right hemisphere infarction and left intracerebral basal ganglia area hemorrhage. PLAN: An EEG has been ordered for tomorrow as well as a CAT scan of the head has been ordered for tomorrow. In few days, recommend to consider a CTA of the head and neck to further investigate the circulation in the right internal carotid. I discussed with the patient's son, his name is Javier, and the patient's that the patient will need to have extensive rehab. Note that he is right-handed and his main insult is on the right of the brain, so he is able to move his right arm and his right leg. Job ID: [id number]
[2018-09-15] MEDS: hydrALAZINE 25 MG TAB PER TUBE SCH ×2 (07:54→20:44)
[2018-09-15] MEDS: Amlodipine 5 MG TAB PER TUBE SCH ×2 (07:54→20:45)
[2018-09-15] MEDS: hydrALAZINE 20 MG/ML VIAL SLOW IVP PRN ×2 (08:18→13:21)
--- NOTE | 2018-09-15 08:18 | PRG ---
DATE OF SERVICE: 09/15/2018 SUBJECTIVE: I saw Mr. Weston in the ICU this morning. Over the weekend, notes indicate he continued to localize with the right upper extremity, withdraws both legs, and weakly withdraws the left upper extremity and there is some flexion. He remained hemodynamically stable. When I see him this morning, the recorded vital signs have been stable. Blood pressure is currently in the 120s. Heart rate is in the 50s to 60s. With stimulation, he begins to open the right eye quickly than the left. He localizes briskly with the right upper extremity, even flexes the knee towards the location of the stimulus on the right side. On the left side, he withdraws the left lower extremity. He does not move the left upper extremity much. There is some reflex activity there, some of which is flexion. At the end, I believe his neurological examination is stable from Saturday. A CT image of the brain was ordered for the early hours of this morning and the CT looks as expected. There is an interval resolution of the left intracerebral hemorrhage, some subarachnoid blood and temporal evolution of the right MCA infarct. Neurosurgery will continue to monitor the patient. I attempted and made contact with the patient's family today. There is no one in the waiting room to make decisions on tracheostomy and gastrostomy. continue to be aggressive in his care. Eventual placement into long-term care facility might be warranted. If they like to make him comfortable, then the amount of intervention can be significantly limited. We will need to have a discussion with the family on those issues. Job ID: [id number]
--- NOTE | 2018-09-15 08:46 | CT ---
PRELIMINARY REPORT/[facility]/EMERGENTY AFTER-HOURS PROCEDURE CT Head Without Intravenous Contrast EXAM DATE/TIME: 09/15/2018 4:43 AM CLINICAL HISTORY: 58 years old, male; Condition or disease; Other: CVA; Patient HX: F/u acute CVA TECHNIQUE: Axial computed tomography images of the head/brain without intravenous contrast. COMPARISON: CT Brain WO Con 09/11/2018 4:02 AM FINDINGS: Brain: There is evolution of large right MCA territory infarct with vasogenic edema associated with e ffacement of the gyri and sulci. There is subarachnoid hemorrhage of the right parietal temporal lobe with possible mild worsening. There is progressive narrowing of the right lateral ventricle with onl y visibility of the right frontal horn. On today's study, there is a proximally 0.7 cm midline shift from right to left. There is interval decreased in size of the left basal ganglionic intraparenchymal hematoma now measuring 1.6 x 3.6 cm as previously measured 2 x 3.7 cm. There is persistent layering of hemorrhage within the left occipital horn. There is improvement of intraventricular hemorrhage wit hin the right occipital horn. Minimal subarachnoid hemorrhage medial occipital lobes. ? Stable subdur al hematoma of the interhemispheric fissure. There is questionable New petechial hemorrhage versus lo calized hemorrhagic focus of the left medial occipital lobe inferiorly, image 12 of series 4. Ventricles: See Brain Finding. Bones/joints: Normal. No acute fracture. Sinuses: There is mucosal thickening of the ethmoid, sphenoid sinuses. There are gas bubbles within t he right sphenoid sinus. Mastoid air cells: Normal as visualized. No mastoid effusion. Soft tissues: Normal. IMPRESSION: 1. Evolution of large right MCA territory infarct with mass effect upon the right lateral ventricle w ith near complete obliteration associated with 0.7 cm midline shift from [id number]. Within this r egion there is stable to mild worsening subarachnoid hemorrhage of the right parietal temporal lobe. 2. Improvement of left basal ganglionic intraparenchymal hematoma with improvement of intraventricula r hemorrhage. 3. Stable subarachnoid hemorrhage of bilateral medial occipital lobes. 4. ?New petechial hemorrhage versus localized hemorrhagic focus of the left medial occipital lobe inf eriorly. Thank you for allowing us to participate in the care of your patient. Dictated and Authenticated by: Susanne Tavera DO 09/15/2018 5:24 AM Central Time ([place] & [place]) FINAL REPORT EMERGENCY AFTER HOURS NONCONTRAST CT HEAD: Date: 09/15/18 HISTORY: Follow-up acute CVA. COMPARISON: 09/11/18. FINDINGS: There have been expected evolutionary changes in the large right middle cerebral artery distribution infarction. There is overall stable parenchymal hematoma in the region of the left basal ganglia given difference s in slice selection. Intraventricular hemorrhage is also again present. There is a greater degree of mass effect in the right cerebral hemisphere compared to the prior study with effacement of occipita l horn and body of the right lateral ventricle, as well as significant mass effect on the anterior ho rn of right lateral ventricle. However, this degree of mass effect was present on the MRI brain of . There is slight shift of midline structures to the left measuring approximately 6.0 mm. Small amount of subarachnoid hemorrhage is again seen within the left parietal lobe. There is stable ectasia of the distal left vertebral artery, as well as the basilar artery. Vascular calcifications seen in the carotid siphons and involving the distal vertebral arteries. Mucosal thickening is seen within the ethmoidal air cells and each sphenoid sinus and right maxillary antrum. Endotracheal tube is noted in place. There is minimal subarachnoid hemorrhage in the medial left occipital lobe. There is mild increased d ensity along the interhemispheric falx, but this is probably related to prominence of the dura as opp osed to hemorrhage along the falx. IMPRESSION: 1. Evolutionary changes in a large right MCA distribution infarction. However, there is now a greate r degree of sulcal effacement in the right cerebral hemisphere as well as shift of the midline struct ures to the left measuring approximately 6.0 mm. 2. Parenchymal hematoma left cerebral hemisphere centered in the region of the left basal ganglia, o verall similar to prior study given differences in slice selection. There has been mild improvement i n intraventricular hemorrhage. 3. Subarachnoid hemorrhage in the left cerebral hemisphere and possibly in the region of the area of infarction in the right cerebral hemisphere. Findings are in agreement with the preliminary report by [facility]. POS: [facility]
--- NOTE | 2018-09-15 09:09 | RAD ---
FRONTAL RADIOGRAPH CHEST: DATE: 09/15/2018. COMPARISON: 09/14/2018. HISTORY: Ventilated patient. FINDINGS: Endotracheal tube terminates at the level of the clavicles. Nasogastric tube extends into the left u pper quadrant, stable. No focal consolidation or alveolar edema. Supine imaging limits assessment f or pneumothorax and pleural fluid. IMPRESSION: No acute findings. POS: [facility]
[2018-09-15] MEDS: cloNIDine 0.1 MG TAB PO PRN (09:25)
[2018-09-15] MEDS: 1/2 NS w/KCL 20 mEq 1,000 ML IV SCH (12:02)
[2018-09-15 12:03] VITALS: BMI 29.0
[2018-09-15] MEDS ORDERED: Pantoprazole 40 MG VIAL IVP SCH (13:45)
[2018-09-15 14:24] LABS: Magnesium 2.2 mg/dL (1.6-2.6); Potassium 3.2 mmol/L (3.5-5.1)
--- NOTE | 2018-09-15 14:53 | PRG ---
DATE OF SERVICE: 09/15/2018 SUBJECTIVE: Perez Wesotn has made no progress neurologically over the weekend. OBJECTIVE: VITAL SIGNS: Heart rate is 94, blood pressure 152/79, and respiratory rate 18. LUNGS: Clear. HEART: Regular rhythm. ABDOMEN: Soft. LABORATORY DATA: White count 10.4, hemoglobin 13.5, platelets 289. Sodium 144, potassium 3, chloride 113, bicarb 20, BUN 29, creatinine 0.98. Blood gas; pH 7.52, CO2 of 30, and pO2 of 77. DIAGNOSTIC DATA: Chest radiograph shows no new infiltrates. IMPRESSION: Respiratory failure associated with a brain hemorrhage associated with tPA. I am told family is meeting with palliative care tomorrow to discuss options. I have also told that family is leaning towards not placing a trach and a PEG. That is the next step in his care. We are going to continue to be aggressive. He also should be made a do not resuscitate patient. I do not anticipate any adverse events while he is intubated, but this will need to be addressed in the meeting as well. CRITICAL CARE TIME: 30 minutes. Job ID: [id number]
[2018-09-15] MEDS: cefTRIAXone\\ROCEPHIN 2 GM in Sodium Chloride 0.9% 100 ML IVPB SCH (17:42)
--- NOTE | 2018-09-15 20:03 | PDOC.PN ---
- Subjective Encounter Start Date: 09/15/18 Encounter Start Time: 11:00 -: non-verbal Patient seen and examined for Acute CVA - on Vent. No overnight events - Objective Resuscitation Status - Order Detail: 09/10/18 21:50 Resuscitation Status Routine Resuscitation Status: FULL: Full Resuscitation MAR Reviewed: Yes Vital Signs & Weight: Vital Signs (12 hours) Temp Pulse Resp BP 09/15/18 18:50 116 H 09/15/18 18:00 23 H 09/15/18 17:05 109 H 153/78 H 09/15/18 17:00 101.1 F H 09/15/18 16:00 21 H 09/15/18 14:00 22 H 09/15/18 13:38 94 152/79 H 09/15/18 12:00 20 09/15/18 11:00 99.4 F 09/15/18 10:45 86 161/90 H 09/15/18 10:00 19 09/15/18 08:18 57 L 138/63 Weight Admit Weight 201 lb Weight 190 lb 11.198 oz Most Recent Monitor Data Heart Rate from ECG 102 NIBP 150/88 NIBP BP-Mean 108 Respiration from ECG 24 SpO2 98 I&O: 09/14/18 09/15/18 09/16/18 06:59 06:59 06:59 Intake Total 1694 4163 2300 Output Total 2847 4580 2325 [facility] -[phone] -[phone] -25 Result Diagrams: 09/15/18 05:28 09/15/18 13:55 Additional Labs: Accuchecks 09/15/18 09/14/18 10:55 22:18 POC Glucose 117 H 127 H Radiology Reviewed by me: Yes (CXR - No infiltrates) EKG Reviewed by me: Yes (Tele SR) Phys Exam - Physical Examination Constitutional: NAD Respiratory: no wheezing, no rhonchi Cardiovascular: RRR, no rub Gastrointestinal: soft, non-tender, positive bowel sounds Musculoskeletal: no edema Neuro/Psych - cannot assess due to current mentation, Spont RUE movement Dx/Plan (1) Acute CVA (cerebrovascular accident) Code(s): I63.9 - CEREBRAL INFARCTION, UNSPECIFIED Status: Acute Comment: s/ p TPA (2) Acute respiratory failure Code(s): J96.00 - ACUTE RESPIRATORY FAILURE, UNSP W HYPOXIA OR HYPERCAPNIA Status: Acute Comment: due to Acute CVA/Encephalopathy (3) Hypokalemia Code(s): E87.6 - HYPOKALEMIA Status: Acute (4) Intraventricular hemorrhage Code(s): I61.5 - NONTRAUMATIC INTRACEREBRAL HEMORRHAGE, INTRAVENTRICULAR Status: Acute (5) Obesity (BMI 30.0-34.9) Code(s): E66.9 - OBESITY, UNSPECIFIED Status: Chronic (6) Hypertension Code(s): I10 - ESSENTIAL (PRIMARY) HYPERTENSION Status: Chronic Comment: uncontrolled (7) Prostate cancer Code(s): C61 - MALIGNANT NEOPLASM OF PROSTATE Status: Chronic - Plan plan discussed w/ family, DVT proph w/SCDs * Cont Amlodipine to 5 mg BID * Increase Hydralazine * Wean Cardene drip * EEG pend * Neurosurgery/Neurology following * Not on antiplatelets or Lovenox due to intracranial bleed * AM labs * Cont other meds as below * Cont supportive care * Replace Potassium Review of Systems - Review of Systems Other: Cannot obtain due to current mentation - Medications/Allergies Allergies/Adverse Reactions: Allergies Allergy/AdvReac Type Severity Reaction Status Date / Time No Known Allergies Allergy Unverified 09/10/18 22:04 Medications: Current Medications Acetaminophen (Tylenol) 650 mg PO Q6H PRN PRN Reason: Fever > 101 or Headache Last Admin: 09/15/18 17:26 Dose: 650 mg Al Hydroxide/Mg Hydroxide (Maalox) 30 ml PO QIDPRN PRN PRN Reason: Dyspepsia Amlodipine Besylate (Norvasc) 5 mg PER TUBE BID [facility] Last Admin: 09/15/18 07:54 Dose: 5 mg Lipase/Protease/Amylase ([place] [id number]) 1 cap FS .PER PROTOCOL PRN PRN Reason: TUBE OCCLUSION PROTOCOL Clonidine (Catapres) 0.1 mg PO Q4H PRN PRN Reason: SBP GREATER THAN 160 Last Admin: 09/15/18 09:25 Dose: 0.1 mg Docusate Sodium (Colace) 100 mg PO BIDPRN PRN PRN Reason: Constipation Hydralazine HCl (Apresoline) 10 mg SLOW IVP Q4H PRN PRN Reason: SBP GREATER THAN 160 Last Admin: 09/15/18 13:21 Dose: 10 mg Hydralazine HCl (Apresoline) 25 mg PER TUBE BID [facility] Last Admin: 09/15/18 07:54 Dose: 25 mg Sodium Chloride (Sodium Chloride 3%) 500 mls @ 50 mls/hr IVPB PRN PRN PRN Reason: ICP Management Fentanyl Citrate 2,000 mcg/ (Sodium Chloride) 100 mls @ 0 mls/hr IV INF [place]; Protocol Stop: 10/10/18 22:13 Fentanyl Citrate (Fentanyl Bolus) 250 mls @ 0 mls/hr IVPB PRN PRN PRN Reason: Breakthrough pain/agitation Stop: 10/10/18 22:13 Potassium Chloride 40 meq/ (Sodium Chloride) 270 mls @ 135 mls/hr IVPB ASDIR PRN PRN Reason: FOR SERUM K+ 2.5 - 3.5 Last Admin: 09/12/18 05:40 Dose: 270 mls Potassium Chloride 40 meq/ (Device) 100 mls @ 50 mls/hr IVPB ASDIR PRN PRN Reason: FOR SERUM K+ 2.5 - 3.5 Last Admin: 09/12/18 23:07 Dose: 100 mls Magnesium Sulfate 1 gm/ Sodium (Chloride) 102 mls @ 102 mls/hr IV PRN PRN PRN Reason: MAG LEVEL 1.4 - 2.0 Magnesium Sulfate 2 gm/ Device 100 mls @ 100 mls/hr IVPB ASDIR PRN PRN Reason: MAGNESIUM < 1.4 Potassium Phosphate 9 mmol/ (Sodium Chloride) 103 mls @ 25.75 mls/hr IVPB ASDIR PRN PRN Reason: Phosphate 1.0-1.8 Potassium Phosphate 12 mmol/ (Sodium Chloride) 254 mls @ 63.5 mls/hr IV ASDIR PRN PRN Reason: Serum phosphate 0.5-0.9 Potassium Phosphate 15 mmol/ (Sodium Chloride) 255 mls @ 63.75 mls/hr IV ASDIR PRN PRN Reason: Serum Phos < 0.5 Dexmedetomidine HCl 400 mcg/ (Sodium Chloride) 100 mls @ 0 mls/hr IVPB INF [place] ; Protocol Last Admin: 09/15/18 17:21 Dose: 100 mls Ceftriaxone Sodium 2 gm/ (Sodium Chloride) 100 mls @ 200 mls/hr IVPB Q24HR [place] Last Admin: 09/15/18 17:42 Dose: 100 mls Nicardipine HCl 50 mg/ Sodium (Chloride) 250 mls @ 0 mls/hr IVPB INF PRN; Protocol PRN Reason: SBP > 150 or DBP > 90 Last Admin: 09/15/18 19:37 Dose: 250 mls Potassium Chloride/Sodium Chloride (1/2 Ns W/Kcl 20 Meq) 1,000 mls @ 75 mls/hr IV .[id number] [place] Last Admin: 09/15/18 12:02 Dose: 1,000 mls Labetalol HCl (Normodyne) 10 mg SLOW IVP Q4H PRN PRN Reason: Systolic BP > 160 Lorazepam (Ativan) 2 mg SLOW IVP Q1H PRN PRN Reason: Breakthrough agitation Stop: 10/10/18 22:13 Last Admin: 09/13/18 20:40 Dose: 2 mg Magnesium Oxide (Magnesium Oxide) 400 mg PO BIDPRN PRN PRN Reason: FOR SERUM MAG 1.4 - 2.0 Magnesium Oxide (Magnesium Oxide) 800 mg PO PRN PRN PRN Reason: FOR SERUM MAG < 1.4 Mannitol (Mannitol) 100 gm IV Q6H PRN PRN Reason: ICP Management Miscellaneous Medication (Ventilator Sedation Protocol) 1 each FS ONE [place] Stop: 10/10/18 22:01 Miscellaneous Medication (Phos-Nak) 1 pkt PO TIDPRN PRN PRN Reason: FOR PHOS LEVEL 1.0 - 1.8 Miscellaneous Medication (Phos-Nak) 2 pkt PO TIDPRN PRN PRN Reason: FOR PHOS LEVEL 0.5 - 1.0 Morphine Sulfate (Morphine) 2 mg SLOW IVP Q1H PRN PRN Reason: BREAKTHROUGH PAIN/Agitation Stop: 10/10/18 22:13 Discontinue Previous Narcotic Pain Medications And Benzodiazepines 1 each FS .ONE [place] Stop: 10/10/18 22:13 Ccu Electrolyte (Replacement Protocol) 0 each FS PRN PRN PRN Reason: FOR ELECTROLYTE REPLACEMENT Pantoprazole Sodium (Protonix) 40 mg IVP DAILY [place] Potassium Chloride (K-Dur) 40 meq PO ASDIR PRN PRN Reason: FOR SERUM K+ 2.5 - 3.5 Potassium Chloride (Klor-Con) 40 meq PER TUBE ASDIR PRN PRN Reason: FOR SERUM K+ 2.5-3.5 Last Admin: 09/15/18 17:24 Dose: 40 meq Propofol (Diprivan) 1,000 mg IV INF PRN; Protocol PRN Reason: TO ACHIEVE GOAL RASS Stop: 10/10/18 22:13 Last Admin: 09/12/18 06:25 Dose: 1,000 mg Sodium Bicarbonate (Bicarbonate, Sodium) 650 mg PER TUBE .PER PROTOCOL PRN PRN Reason: ENTERAL TUBE OCCLUSION Sodium Chloride (Flush - Normal Saline) 10 ml IVF PRN PRN PRN Reason: Saline Flush Sodium Chloride (Flush - Normal Saline) 10 ml IV DAILY [place]
[2018-09-16] MEDS: 1/2 NS w/KCL 20 mEq 1,000 ML IV SCH ×2 (00:44→14:04)
[2018-09-16] MEDS: hydrALAZINE 20 MG/ML VIAL SLOW IVP PRN ×2 (01:13→14:04)
[2018-09-16] MEDS: niCARdipine HCl 50 MG in Sodium Chloride 0.9% 250 ML 230 ML IVPB PRN ×2 (02:24→05:58)
[2018-09-16 05:35] LABS: Anion Gap 11 mmol/L (10-20); BUN (Urea Nitrogen) 31 mg/dL (8.4-25.7); Calc. Creatinine Clearance 98 mL/min (70-130); Calcium 9.3 mg/dL (7.8-10.44); Carbon Dioxide 20 mmol/L (22-29); Chloride 119 mmol/L (98-107); Estimated GFR-MDRD 78; Glucose 131 mg/dL (70-105); Potassium 3.3 mmol/L (3.5-5.1); Sodium 147 mmol/L (136-145)
[2018-09-16 05:46] LABS: Band 2 % (5-11); Hemoglobin 12.9 g/dL (14.0-18.0); Hypochromia SLIGHT = 6-15 cells (100X) (0-5/hpf); Lymphocytes 12 % (21-51); MDiff Complete? YES; Mean Corpuscular HGB CONC 33.3 g/dL (32.0-36.0); Mean Corpuscular Hemoglobin 31.3 pg (27.0-31.0); Mean Corpuscular Volume 93.9 fL (78.0-98.0); Mean Platelet Volume 9.8 fL (7.4-10.4); Monocytes 5 % (0-10); Neutrophil 81 % (42-75); PLT Morphology Comment Appears Adequate; Platelet Count 275 thou/uL (130-400); RBC Distribution Width 12.2 % (11.5-14.5); Red Blood Cell (RBC) Count 4.12 mill/uL (4.70-6.10); White Blood Cell (WBC) Count 10.2 thou/uL (4.8-10.8)
[2018-09-16] MEDS: Pantoprazole 40 MG VIAL IVP SCH (07:21)
[2018-09-16 07:22] LABS: Base Excess (BEa) -1.5 mEq/L (-2.0 to +3.0); Calcium, Ionized 1.15 mmol/L (1.12-1.30); Carboxyhemoglobin (COHb) 0.5 gm% (0.0-3.0); O2 Tension (PaO2) 135.8 mmHg (> 80.0); Potassium - ABG Lab 3.16 mmol/L (3.70-5.30); pH, Arterial 7.51 (7.35-7.45)
[2018-09-16] MEDS: Amlodipine 5 MG TAB PER TUBE SCH ×2 (07:22→20:25)
[2018-09-16] MEDS: hydrALAZINE 25 MG TAB PER TUBE SCH ×3 (07:22→20:25)
[2018-09-16 07:30] LABS: CO2 Tension 25.7 mmHg (35.0-45.0)
[2018-09-16 07:31] LABS: ALV-art Gradient 45.975 (0-20)
--- NOTE | 2018-09-16 07:42 | PRG ---
DATE OF SERVICE: 09/16/2018 NEUROSURGERY PROGRESS NOTE I saw Mr. Weston in the ICU this morning. Yesterday, our service was contacted yesterday about an available time to visit with the family regarding prognosis and a tracheostomy/gastrostomy. We indicated we could meet at the bedside at 06:20 and meet this morning. The family is unfortunately not here. Vital signs have been controlled with Cardene drip overnight, blood pressures in the 140s currently. The other vital signs are stable. On examination, with Precedex running, Mr. Weston localizes with the right upper extremity. The right lower extremity flexes towards the site of stimulus as well. He withdraws both legs. The left upper extremity extends to stimulus. His pupils are reactive. This morning, the white blood cell count is 10.2 and the sodium is 147. Mr. Weston will undoubtedly need a trach and PEG if we are to continue with aggressive care. I think he will have permanent neurological deficit and will be unable to care for himself going forward, but he may be able to return to consciousness and perhaps even communication at some point in the distant future after recovery from this. I think the right side of his body will move well and his speech may return. However, he will have permanent deficits on the left. I made a plan to discuss this with the family this morning, but they are unavailable. I have evidently made other arrangements to meet with care providers. I will follow up with the nursing staff regarding their wishes. Job ID: [id number] [facility]
--- NOTE | 2018-09-16 09:05 | RAD ---
AP VIEW CHEST: HISTORY: Ventilator-dependent patient. FINDINGS: AP view chest is obtained on 09/16/2018. Comparison is made to previous exam from 09/15/2018. AP view chest demonstrates nasogastric and endotracheal tubes to be in place. Mild cardiomegaly is s een. Mild pulmonary vascular congestion is seen. No evidence of effusions, pneumonia, or pneumothor ax seen. IMPRESSION: Stable AP view of the chest unchanged since the previous exam. POS: [facility]
--- NOTE | 2018-09-16 13:59 | PRG ---
DATE OF SERVICE: 09/16/2018 SUBJECTIVE: Mr. Weston is not improved neurologically. OBJECTIVE: VITAL SIGNS: Heart rate is 114, blood pressure 144/68, respiratory rate 23, and oximetry is 100%. LUNGS: Clear. HEART: Regular rhythm. ABDOMEN: Soft. EXTREMITIES: Without asymmetry. LABORATORY DATA: Chest x-ray is unchanged. White count 10.2, hemoglobin 12.9, and platelets 275. Sodium 147, potassium 3.3, chloride 119, bicarb 20, BUN 31, creatinine 0.98, and glucose 131. IMPRESSION: Respiratory failure after a brain hemorrhage. RECOMMENDATION: Prognosis is quite poor. Family is considering withdrawal of care. Job ID: [id number]
--- NOTE | 2018-09-16 14:52 | EEG ---
Referring Physician: ANTHONY HANEY EEG # [id number] TEST TYPE: ROUTINE PORTABLE INPATIENT REPORT: AN EEG USING THE INTERNATIONAL TEN-TWENTY SYSTEM OF ELECTRODE PLACEMENT WAS PERFORMED. The best waking background is a 7 hertz Theta frequency. There is some intermixed 3 hertz Delta activity seen sporadically. Muscle and movement artifact were present. Photic stimulation was unremarkable. No epileptiform features were present. IMPRESSION: THIS IS AN ABNORMAL STUDY FOR THE FINDINGS OF DIFFUSE SLOWING CONSISTENT WITH A DIFFUSE ENCEPHALOPATHIC occupational health manager: JAY [employer] Offbearer: EEG.MARTHA ALMEIDA
[2018-09-16] MEDS: Labetalol HCl 100 MG/20 ML VIAL SLOW IVP PRN ×2 (18:01→21:35)
[2018-09-16] MEDS: cefTRIAXone\\ROCEPHIN 2 GM in Sodium Chloride 0.9% 100 ML IVPB SCH (18:34)
--- NOTE | 2018-09-16 22:40 | PDOC.PN ---
- Subjective Encounter Start Date: 09/16/18 Encounter Start Time: 20:30 -: non-verbal Patient seen and examined for Acute CVA. No new complaints. No overnight events - Objective Resuscitation Status - Order Detail: 09/16/18 12:16 Resuscitation Status Routine Resuscitation Status: DNAR: NO Resuscitation Discussed with: confirmed with pt's spouse in family meeting Additional comments: plan to compassionately extubate saturday at 9 am MAR Reviewed: Yes Vital Signs & Weight: Vital Signs (12 hours) Temp Pulse Resp BP Pulse Ox 09/16/18 22:11 95 128/64 09/16/18 22:00 22 H 09/16/18 21:35 106 H 163/95 H 09/16/18 20:25 106 H 163/95 H 09/16/18 20:00 24 H 09/16/18 19:41 99 09/16/18 19:00 99.4 F 09/16/18 18:01 106 H 163/95 H 09/16/18 18:00 21 H 09/16/18 16:48 106 H 163/95 H 09/16/18 16:00 100.8 F H 21 H 09/16/18 15:03 98 165/92 H 09/16/18 14:00 20 09/16/18 12:00 100.0 F H 20 09/16/18 10:45 114 H 144/68 H Weight Admit Weight 201 lb Weight 195 lb 1.745 oz Most Recent Monitor Data Heart Rate from ECG 73 NIBP 128/64 NIBP BP-Mean 85 Respiration from ECG 24 SpO2 99 I&O: 09/15/18 09/16/18 09/17/18 06:59 06:59 06:59 Intake Total 4163 5565 2075 Output Total 9180 3795 3485 Balance -417 1770 -1410 Result Diagrams: 09/16/18 04:43 09/16/18 04:43 Additional Labs: Accuchecks 09/16/18 09/16/18 09/16/18 21:16 15:51 09:59 POC Glucose 107 117 H 106 09/16/18 09/15/18 04:41 22:12 POC Glucose 120 H 130 H EKG Reviewed by me: Yes (Tele SR) Phys Exam - Physical Examination Constitutional: NAD on Vent Respiratory: no wheezing Scat rhonchi Cardiovascular: RRR, no rub Gastrointestinal: soft, positive bowel sounds Dx/Plan (1) Acute CVA (cerebrovascular accident) Code(s): I63.9 - CEREBRAL INFARCTION, UNSPECIFIED Status: Acute Comment: s/ p TPA (2) Acute respiratory failure Code(s): J96.00 - ACUTE RESPIRATORY FAILURE, UNSP W HYPOXIA OR HYPERCAPNIA Status: Acute Comment: due to Acute CVA/Encephalopathy (3) Hypokalemia Code(s): E87.6 - HYPOKALEMIA Status: Acute (4) Intraventricular hemorrhage Code(s): I61.5 - NONTRAUMATIC INTRACEREBRAL HEMORRHAGE, INTRAVENTRICULAR Status: Acute (5) Obesity (BMI 30.0-34.9) Code(s): E66.9 - OBESITY, UNSPECIFIED Status: Chronic (6) Hypertension Code(s): I10 - ESSENTIAL (PRIMARY) HYPERTENSION Status: Chronic Comment: uncontrolled (7) Prostate cancer Code(s): C61 - MALIGNANT NEOPLASM OF PROSTATE Status: Chronic - Plan DVT proph w/SCDs * EEG pend * Neurosurgery/Neurology following * Not on antiplatelets or Lovenox due to intracranial bleed * AM labs * Cont other meds as below * Family deciding PEG trach vs terminal extubation * Replace Potassium * Cont supportive care Review of Systems - Review of Systems Other: Cannot obtain due to current cognition - Medications/Allergies Allergies/Adverse Reactions: Allergies Allergy/AdvReac Type Severity Reaction Status Date / Time No Known Allergies Allergy Unverified 09/10/18 22:04 Medications: Current Medications Acetaminophen (Tylenol) 650 mg PO Q6H PRN PRN Reason: Fever > 101 or Headache Last Admin: 09/15/18 17:26 Dose: 650 mg Al Hydroxide/Mg Hydroxide (Maalox) 30 ml PO QIDPRN PRN PRN Reason: Dyspepsia Amlodipine Besylate (Norvasc) 5 mg PER TUBE BID [facility] Last Admin: 09/16/18 20:25 Dose: 5 mg Lipase/Protease/Amylase ([place] [id number]) 1 cap FS .PER PROTOCOL PRN PRN Reason: TUBE OCCLUSION PROTOCOL Clonidine (Catapres) 0.1 mg PO Q4H PRN PRN Reason: SBP GREATER THAN 160 Last Admin: 09/15/18 09:25 Dose: 0.1 mg Docusate Sodium (Colace) 100 mg PO BIDPRN PRN PRN Reason: Constipation Hydralazine HCl (Apresoline) 10 mg SLOW IVP Q4H PRN PRN Reason: SBP GREATER THAN 160 Last Admin: 09/16/18 14:04 Dose: 10 mg Hydralazine HCl (Apresoline) 50 mg PER TUBE TID [facility] Last Admin: 09/16/18 20:25 Dose: 50 mg Sodium Chloride (Sodium Chloride 3%) 500 mls @ 50 mls/hr IVPB PRN PRN PRN Reason: ICP Management Fentanyl Citrate 2,000 mcg/ (Sodium Chloride) 100 mls @ 0 mls/hr IV INF [facility]; Protocol Stop: 10/10/18 22:13 Fentanyl Citrate (Fentanyl Bolus) 250 mls @ 0 mls/hr IVPB PRN PRN PRN Reason: Breakthrough pain/agitation Stop: 10/10/18 22:13 Potassium Chloride 40 meq/ (Sodium Chloride) 270 mls @ 135 mls/hr IVPB ASDIR PRN PRN Reason: FOR SERUM K+ 2.5 - 3.5 Last Admin: 09/12/18 05:40 Dose: 270 mls Potassium Chloride 40 meq/ (Device) 100 mls @ 50 mls/hr IVPB ASDIR PRN PRN Reason: FOR SERUM K+ 2.5 - 3.5 Last Admin: 09/12/18 23:07 Dose: 100 mls Magnesium Sulfate 1 gm/ Sodium (Chloride) 102 mls @ 102 mls/hr IV PRN PRN PRN Reason: MAG LEVEL 1.4 - 2.0 Magnesium Sulfate 2 gm/ Device 100 mls @ 100 mls/hr IVPB ASDIR PRN PRN Reason: MAGNESIUM < 1.4 Potassium Phosphate 9 mmol/ (Sodium Chloride) 103 mls @ 25.75 mls/hr IVPB ASDIR PRN PRN Reason: Phosphate 1.0-1.8 Potassium Phosphate 12 mmol/ (Sodium Chloride) 254 mls @ 63.5 mls/hr IV ASDIR PRN PRN Reason: Serum phosphate 0.5-0.9 Potassium Phosphate 15 mmol/ (Sodium Chloride) 255 mls @ 63.75 mls/hr IV ASDIR PRN PRN Reason: Serum Phos < 0.5 Dexmedetomidine HCl 400 mcg/ (Sodium Chloride) 100 mls @ 0 mls/hr IVPB INF [facility] ; Protocol Last Admin: 09/16/18 13:04 Dose: 100 mls Ceftriaxone Sodium 2 gm/ (Sodium Chloride) 100 mls @ 200 mls/hr IVPB Q24HR [facility] Last Admin: 09/16/18 18:34 Dose: 100 mls Potassium Chloride/Sodium Chloride (1/2 Ns W/Kcl 20 Meq) 1,000 mls @ 75 mls/hr IV .[id number] [facility] Last Admin: 09/16/18 14:04 Dose: 1,000 mls Labetalol HCl (Normodyne) 10 mg SLOW IVP Q4H PRN PRN Reason: Systolic BP > 160 Last Admin: 09/16/18 21:35 Dose: 2 ml Lorazepam (Ativan) 2 mg SLOW IVP Q1H PRN PRN Reason: Breakthrough agitation Stop: 10/10/18 22:13 Last Admin: 09/13/18 20:40 Dose: 2 mg Magnesium Oxide (Magnesium Oxide) 400 mg PO BIDPRN PRN PRN Reason: FOR SERUM MAG 1.4 - 2.0 Magnesium Oxide (Magnesium Oxide) 800 mg PO PRN PRN PRN Reason: FOR SERUM MAG < 1.4 Mannitol (Mannitol) 100 gm IV Q6H PRN PRN Reason: ICP Management Miscellaneous Medication (Ventilator Sedation Protocol) 1 each FS ONE [facility] Stop: 10/10/18 22:01 Miscellaneous Medication (Phos-Nak) 1 pkt PO TIDPRN PRN PRN Reason: FOR PHOS LEVEL 1.0 - 1.8 Miscellaneous Medication (Phos-Nak) 2 pkt PO TIDPRN PRN PRN Reason: FOR PHOS LEVEL 0.5 - 1.0 Morphine Sulfate (Morphine) 2 mg SLOW IVP Q1H PRN PRN Reason: BREAKTHROUGH PAIN/Agitation Stop: 10/10/18 22:13 Discontinue Previous Narcotic Pain Medications And Benzodiazepines 1 each FS .ONE [facility] Stop: 10/10/18 22:13 Ccu Electrolyte (Replacement Protocol) 0 each FS PRN PRN PRN Reason: FOR ELECTROLYTE REPLACEMENT Pantoprazole Sodium (Protonix) 40 mg IVP DAILY [facility] Last Admin: 09/16/18 07:21 Dose: 40 mg Potassium Chloride (K-Dur) 40 meq PO ASDIR PRN PRN Reason: FOR SERUM K+ 2.5 - 3.5 Potassium Chloride (Klor-Con) 40 meq PER TUBE ASDIR PRN PRN Reason: FOR SERUM K+ 2.5-3.5 Last Admin: 09/16/18 07:23 Dose: 40 meq Propofol (Diprivan) 1,000 mg IV INF PRN; Protocol PRN Reason: TO ACHIEVE GOAL RASS Stop: 10/10/18 22:13 Last Admin: 09/12/18 06:25 Dose: 1,000 mg Sodium Bicarbonate (Bicarbonate, Sodium) 650 mg PER TUBE .PER PROTOCOL PRN PRN Reason: ENTERAL TUBE OCCLUSION Sodium Chloride (Flush - Normal Saline) 10 ml IVF PRN PRN PRN Reason: Saline Flush Sodium Chloride (Flush - Normal Saline) 10 ml IV DAILY [facility] Last Admin: 09/16/18 07:22 Dose: 10 ml
[2018-09-16] MEDS: Acetaminophen 325 MG TAB PO PRN (22:52)
[2018-09-17] MEDS: 1/2 NS w/KCL 20 mEq 1,000 ML IV SCH ×3 (03:49→17:15)
[2018-09-17] MEDS: Acetaminophen 325 MG TAB PO PRN (05:46)
[2018-09-17 06:18] LABS: Band 6 % (5-11); Hemoglobin 13.1 g/dL (14.0-18.0); Lymphocytes 13 % (21-51); MDiff Complete? YES; Mean Corpuscular HGB CONC 33.4 g/dL (32.0-36.0); Mean Corpuscular Hemoglobin 31.2 pg (27.0-31.0); Mean Corpuscular Volume 93.4 fL (78.0-98.0); Monocytes 8 % (0-10); Neutrophil 72 % (42-75); PLT Morphology Comment Appears Adequate; Platelet Count 270 thou/uL (130-400); RBC Distribution Width 12.3 % (11.5-14.5); White Blood Cell (WBC) Count 9.9 thou/uL (4.8-10.8)
[2018-09-17 06:30] LABS: Anion Gap 14 mmol/L (10-20); BUN (Urea Nitrogen) 30 mg/dL (8.4-25.7); Calc. Creatinine Clearance 87 mL/min (70-130); Calcium 9.1 mg/dL (7.8-10.44); Carbon Dioxide 21 mmol/L (22-29); Chloride 119 mmol/L (98-107); Estimated GFR-MDRD 66; Glucose 121 mg/dL (70-105); Potassium 3.6 mmol/L (3.5-5.1); Sodium 150 mmol/L (136-145)
[2018-09-17] MEDS: Amlodipine 5 MG TAB PER TUBE SCH (08:22)
[2018-09-17] MEDS: Pantoprazole 40 MG VIAL IVP SCH (08:22)
[2018-09-17] MEDS: hydrALAZINE 25 MG TAB PER TUBE SCH ×2 (08:22→14:15)
--- NOTE | 2018-09-17 08:44 | RAD ---
SINGLE VIEW CHEST: Date: 09/17/18 COMPARISON: 09/16/18. HISTORY: Ventilated patient with respiratory failure. FINDINGS: Single view of chest shows normal sized cardiomediastinal silhouette. Endotracheal tube and NG tube a re unchanged in position. IMPRESSION: Stable exam. POS: [facility]
--- NOTE | 2018-09-17 09:07 | PRG ---
DATE OF SERVICE: 09/17/2018 I saw Mr. Weston in his ICU room this morning. A family meeting took place later in the morning yesterday with care provides and multiple family members. We discussed Perez's wishes in this situation and came to the conclusion that we do not want to go on with the aggressive care and ventilatory support. Once the family is gathered today, the plan is for extubation. Overnight, T-max of 100.9 degrees Fahrenheit. Blood pressures have been in the 120s to 160s. On examination, there is no change in his neurological function since yesterday. Even on Precedex, he localizes with right upper extremity, withdraws both lower extremities and he has only reflex extension of the left upper extremity. The pupils are reactive. Sodium is 150 this morning. The plan is for extubation today and comfort care. Surgery Service will sign off now and can be contacted with questions should the need arise. Job ID: [id number]
[2018-09-17] MEDS ORDERED: Scopolamine 1.5 mg/72 hour Patch TD SCH (10:00)
[2018-09-17] MEDS: Lorazepam 2 MG/ML VIAL SLOW IVP PRN ×6 (10:19→23:24)
[2018-09-17] MEDS: Morphine 2 MG/ML SYRINGE SLOW IVP PRN ×6 (10:19→23:24)
[2018-09-17] MEDS: Labetalol HCl 100 MG/20 ML VIAL SLOW IVP PRN (11:12)
--- NOTE | 2018-09-17 14:34 | PRG ---
DATE OF SERVICE: 09/17/2018 SUBJECTIVE: Mr. Weston has not really changed significantly. He spontaneously moves his right side. He is intubated. OBJECTIVE: VITAL SIGNS: Blood pressure 170/97, heart rate is in 90s, respiration 20s, and oximetry is 98%. LUNGS: Unchanged. HEART: Unchanged. ABDOMEN: Unchanged. LABORATORY DATA: White count 9.9, hemoglobin 13.1, platelets 270. Sodium 150, potassium 3.6, chloride 119, bicarbonate 21, BUN 30, creatinine 1.14. Family, after the palliative care discussions, stated they wanted the patient extubated this morning. He may not succumb to this and may need to be placed in inpatient hospice if he does well postextubation. He has been made a [id number] patient. Job ID: [id number]
--- NOTE | 2018-09-17 14:56 | PDOC.PN ---
- Subjective Encounter Start Date: 09/17/18 Encounter Start Time: 08:00 -: non-verbal Patient seen and examined for Acute CVA. On Vent. No overnight events - Objective Resuscitation Status - Order Detail: 09/16/18 12:16 Resuscitation Status Routine Resuscitation Status: DNAR: NO Resuscitation Discussed with: confirmed with pt's spouse in family meeting Additional comments: plan to compassionately extubate saturday at 9 am MAR Reviewed: Yes Vital Signs & Weight: Vital Signs (12 hours) Temp Pulse Resp Pulse Ox 09/17/18 12:00 99.2 F 98 09/17/18 10:15 86 22 H 98 09/17/18 08:00 102.3 F H 21 H 100 09/17/18 07:48 90 09/17/18 06:00 23 H 09/17/18 05:00 98.9 F 09/17/18 04:00 22 H 09/17/18 03:00 100.9 F H Weight Admit Weight 201 lb Weight 197 lb 12.074 oz Most Recent Monitor Data Heart Rate from ECG 110 NIBP 164/100 NIBP BP-Mean 121 Respiration from ECG 21 SpO2 100 I&O: 09/16/18 09/17/18 09/18/18 06:59 06:59 06:59 Intake Total 5565 3401 60 Output Total 3795 5110 1950 Balance 1770 -1709 -1890 Result Diagrams: 09/17/18 06:01 09/17/18 06:01 Additional Labs: Accuchecks 09/17/18 09/16/18 09/16/18 04:11 21:16 15:51 POC Glucose 110 107 117 H EKG Reviewed by me: Yes (Tele SR) Phys Exam - Physical Examination Constitutional: NAD (on Vent) Respiratory: no wheezing Bibasilar rales Cardiovascular: RRR, no rub Gastrointestinal: soft, positive bowel sounds Musculoskeletal: no edema Dx/Plan (1) Acute CVA (cerebrovascular accident) Code(s): I63.9 - CEREBRAL INFARCTION, UNSPECIFIED Status: Acute Comment: s/ p TPA (2) Acute respiratory failure Code(s): J96.00 - ACUTE RESPIRATORY FAILURE, UNSP W HYPOXIA OR HYPERCAPNIA Status: Acute Comment: due to Acute CVA/Encephalopathy (3) Hypokalemia Code(s): E87.6 - HYPOKALEMIA Status: Acute (4) Intraventricular hemorrhage Code(s): I61.5 - NONTRAUMATIC INTRACEREBRAL HEMORRHAGE, INTRAVENTRICULAR Status: Acute (5) Obesity (BMI 30.0-34.9) Code(s): E66.9 - OBESITY, UNSPECIFIED Status: Chronic (6) Hypertension Code(s): I10 - ESSENTIAL (PRIMARY) HYPERTENSION Status: Chronic (7) Prostate cancer Code(s): C61 - MALIGNANT NEOPLASM OF PROSTATE Status: Chronic - Plan DVT proph w/SCDs * Terminal extubation today per family d/w with Palliative care * Not on antiplatelets or Lovenox due to intracranial bleed * Cont other meds as below * Cont supportive care Review of Systems - Review of Systems Other: Cannot obtain due to current mentation. - Medications/Allergies Allergies/Adverse Reactions: Allergies Allergy/AdvReac Type Severity Reaction Status Date / Time No Known Allergies Allergy Unverified 09/10/18 22:04 Medications: Current Medications Acetaminophen (Tylenol) 650 mg PO Q6H PRN PRN Reason: Fever > 101 or Headache Last Admin: 09/17/18 05:46 Dose: 650 mg Al Hydroxide/Mg Hydroxide (Maalox) 30 ml PO QIDPRN PRN PRN Reason: Dyspepsia Amlodipine Besylate (Norvasc) 5 mg PER TUBE BID [facility] Last Admin: 09/17/18 08:22 Dose: 5 mg Lipase/Protease/Amylase ([place] [id number]) 1 cap FS .PER PROTOCOL PRN PRN Reason: TUBE OCCLUSION PROTOCOL Clonidine (Catapres) 0.1 mg PO Q4H PRN PRN Reason: SBP GREATER THAN 160 Last Admin: 09/15/18 09:25 Dose: 0.1 mg Docusate Sodium (Colace) 100 mg PO BIDPRN PRN PRN Reason: Constipation Hydralazine HCl (Apresoline) 10 mg SLOW IVP Q4H PRN PRN Reason: SBP GREATER THAN 160 Last Admin: 09/16/18 14:04 Dose: 10 mg Hydralazine HCl (Apresoline) 50 mg PER TUBE TID [facility] Last Admin: 09/17/18 14:15 Dose: Not Given Sodium Chloride (Sodium Chloride 3%) 500 mls @ 50 mls/hr IVPB PRN PRN PRN Reason: ICP Management Fentanyl Citrate 2,000 mcg/ (Sodium Chloride) 100 mls @ 0 mls/hr IV INF [facility]; Protocol Stop: 10/10/18 22:13 Fentanyl Citrate (Fentanyl Bolus) 250 mls @ 0 mls/hr IVPB PRN PRN PRN Reason: Breakthrough pain/agitation Stop: 10/10/18 22:13 Potassium Chloride 40 meq/ (Sodium Chloride) 270 mls @ 135 mls/hr IVPB ASDIR PRN PRN Reason: FOR SERUM K+ 2.5 - 3.5 Last Admin: 09/12/18 05:40 Dose: 270 mls Potassium Chloride 40 meq/ (Device) 100 mls @ 50 mls/hr IVPB ASDIR PRN PRN Reason: FOR SERUM K+ 2.5 - 3.5 Last Admin: 09/12/18 23:07 Dose: 100 mls Magnesium Sulfate 1 gm/ Sodium (Chloride) 102 mls @ 102 mls/hr IV PRN PRN PRN Reason: MAG LEVEL 1.4 - 2.0 Magnesium Sulfate 2 gm/ Device 100 mls @ 100 mls/hr IVPB ASDIR PRN PRN Reason: MAGNESIUM < 1.4 Potassium Phosphate 9 mmol/ (Sodium Chloride) 103 mls @ 25.75 mls/hr IVPB ASDIR PRN PRN Reason: Phosphate 1.0-1.8 Potassium Phosphate 12 mmol/ (Sodium Chloride) 254 mls @ 63.5 mls/hr IV ASDIR PRN PRN Reason: Serum phosphate 0.5-0.9 Potassium Phosphate 15 mmol/ (Sodium Chloride) 255 mls @ 63.75 mls/hr IV [facility]IR PRN PRN Reason: Serum Phos < 0.5 Dexmedetomidine HCl 400 mcg/ (Sodium Chloride) 100 mls @ 0 mls/hr IVPB INF [facility] ; Protocol Last Admin: 09/17/18 04:34 Dose: 100 mls Ceftriaxone Sodium 2 gm/ (Sodium Chloride) 100 mls @ 200 mls/hr IVPB Q24HR [facility] Last Admin: 09/16/18 18:34 Dose: 100 mls Potassium Chloride/Sodium Chloride (1/2 Ns W/Kcl 20 Meq) 1,000 mls @ 75 mls/hr IV .[id number] [facility] Last Admin: 09/17/18 03:53 Dose: 1,000 mls Labetalol HCl (Normodyne) 10 mg SLOW IVP Q4H PRN PRN Reason: Systolic BP > 160 Last Admin: 09/17/18 11:12 Dose: 2 ml Lorazepam (Ativan) 2 mg SLOW IVP Q1H PRN PRN Reason: Breakthrough agitation Stop: 10/10/18 22:13 Last Admin: 09/17/18 14:25 Dose: 2 mg Magnesium Oxide (Magnesium Oxide) 400 mg PO BIDPRN PRN PRN Reason: FOR SERUM MAG 1.4 - 2.0 Magnesium Oxide (Magnesium Oxide) 800 mg PO PRN PRN PRN Reason: FOR SERUM MAG < 1.4 Mannitol (Mannitol) 100 gm IV Q6H PRN PRN Reason: ICP Management Miscellaneous Medication (Ventilator Sedation Protocol) 1 each FS ONE [facility] Stop: 10/10/18 22:01 Miscellaneous Medication (Phos-Nak) 1 pkt PO TIDPRN PRN PRN Reason: FOR PHOS LEVEL 1.0 - 1.8 Miscellaneous Medication (Phos-Nak) 2 pkt PO TIDPRN PRN PRN Reason: FOR PHOS LEVEL 0.5 - 1.0 Morphine Sulfate (Morphine) 2 mg SLOW IVP Q1H PRN PRN Reason: BREAKTHROUGH PAIN/Agitation Stop: 10/10/18 22:13 Last Admin: 09/17/18 14:25 Dose: 2 mg Discontinue Previous Narcotic Pain Medications And Benzodiazepines 1 each FS .ONE [facility] Stop: 10/10/18 22:13 Ccu Electrolyte (Replacement Protocol) 0 each FS PRN PRN PRN Reason: FOR ELECTROLYTE REPLACEMENT Pantoprazole Sodium (Protonix) 40 mg IVP DAILY [facility] Last Admin: 09/17/18 08:22 Dose: 40 mg Potassium Chloride (K-Dur) 40 meq PO ASDIR PRN PRN Reason: FOR SERUM K+ 2.5 - 3.5 Potassium Chloride (Klor-Con) 40 meq PER TUBE ASDIR PRN PRN Reason: FOR SERUM K+ 2.5-3.5 Last Admin: 09/16/18 07:23 Dose: 40 meq Propofol (Diprivan) 1,000 mg IV INF PRN; Protocol PRN Reason: TO ACHIEVE GOAL [facility] Stop: 10/10/18 22:13 Last Admin: 09/12/18 06:25 Dose: 1,000 mg Scopolamine (Transderm Scop) 1.5 mg TD Q3D [facility] Last Admin: 09/17/18 10:26 Dose: 1.5 mg Sodium Bicarbonate (Bicarbonate, Sodium) 650 mg PER TUBE .PER PROTOCOL PRN PRN Reason: ENTERAL TUBE OCCLUSION Sodium Chloride (Flush - Normal Saline) 10 ml IVF PRN PRN PRN Reason: Saline Flush Sodium Chloride (Flush - Normal Saline) 10 ml IV DAILY [facility] Last Admin: 09/17/18 08:22 Dose: 10 ml
[2018-09-17] MEDS: cefTRIAXone\\ROCEPHIN 2 GM in Sodium Chloride 0.9% 100 ML IVPB SCH (17:15)
[2018-09-18] MEDS: Lorazepam 2 MG/ML VIAL SLOW IVP PRN ×4 (02:05→19:53)
[2018-09-18] MEDS: Morphine 2 MG/ML SYRINGE SLOW IVP PRN ×4 (02:05→19:53)
--- NOTE | 2018-09-18 11:35 | PRG ---
DATE OF SERVICE: 09/18/2018 SUBJECTIVE: Perez Weston has been transferred out of the Critical Care Unit for supportive care. OBJECTIVE: VITAL SIGNS: Temperature is 100.5, heart rate is 97, respiratory rates in the 20s, oximetry is 88% to 90% on room air, and blood pressure 160/95. PLAN: Inpatient hospice in my opinion would be the next best step. We will sign off. Job ID: [id number]
[2018-09-18 11:59] VITALS: TEMP 101.6
[2018-09-18 19:40] VITALS: BP 136/91
--- NOTE | 2018-09-19 14:13 | DIS ---
DATE OF ADMISSION: 09/10/2018 DATE OF DISCHARGE: 09/18/2018 DISCHARGE DISPOSITION: Inpatient hospice. The patient was seen and examined on the day of discharge. ALLERGIES: NO KNOWN DRUG ALLERGIES. CODE STATUS: Do not resuscitate. DISCHARGE MEDICATIONS: Per Hospice. BRIEF HOSPITAL COURSE: The patient is a 58-year-old male with hyperlipidemia, hypertension, and colon cancer in the past, presented to the hospital with stroke-like symptoms. He received tPA in the emergency room. He was found to have confusion in the emergency room and was found to have hemorrhagic stroke on the opposite side. Please refer to the history and physical for further details. The patient was admitted to the intensive care unit with a diagnosis of acute CVA, status post tPA. He was found to have a right MCA distribution ischemic CVA with hemolytic CVA in the left basal ganglia. He was placed on mechanical ventilation. He was seen by multiple consultants including Neurosurgery, Neurology, as well as Critical Care. MRI of the brain on 12/09/2018 showed large acute MCA infarction on the right with intra-axial hemorrhage lateral to the left basal ganglia with intraventricular extension. Family decided on comfort care. He was extubated yesterday. He will be transferred to inpatient hospice. FINAL DIAGNOSES: 1. Acute right middle cerebral artery distribution cerebrovascular accident. 2. Acute hemorrhagic cerebrovascular accident around the left basal ganglia, status post tPA. 3. Toxic metabolic encephalopathy secondary to acute right middle cerebral artery distribution cerebrovascular accident and acute hemorrhagic cerebrovascular accident around the left basal ganglia, status post tPA. 4. Hypokalemia. 5. Obesity with a BMI of 30.1. 6. Hypertension. 7. Prostate cancer. 8. History of colon cancer. 9. Lymphoma. 10. History of penile cancer. 11. Hypernatremia. 12. Chronic anemia. 13. Acute respiratory failure secondary to cerebrovascular accident, requiring mechanical ventilation. 14. Chronic kidney disease, stage 2. DIAGNOSTIC STUDIES: LABORATORY RESULTS: Cholesterol 220, LDL 142, and HDL 50. Please note that the patient was not discharged on any antiplatelet agent due to acute hemorrhagic CVA. He was also not discharged on any statin due to comfort care. Plan of care was discussed with the patient and the family in detail, they stated understanding. Job ID: [id number]
== END 2018-09-18 20:45 | disposition hospice, inpatient (51) | DRG 64 ==
LOC: ERS 19:59 → CCU 23:07 → T4-A 09-17 15:51
PROVIDERS: ADMIT Family Medicine; ATTEND Family Medicine
PROC: 30233K1 Transfusion of Nonautologous Frozen Plasma into Peripheral Vein, Percutaneous Approach (ICD-10-PCS; principal; 2018-09-10)
PROC: 5A1955Z Respiratory Ventilation, Greater than 96 Consecutive Hours (ICD-10-PCS; 2018-09-10)
PROC: 0BH17EZ Insertion of Endotracheal Airway into Trachea, Via Natural or Artificial Opening (ICD-10-PCS; 2018-09-10)
PROC: 0T9B70Z Drainage of Bladder with Drainage Device, Via Natural or Artificial Opening (ICD-10-PCS; 2018-09-11)
DX: I63.9 Cerebral infarction, unspecified (principal); I61.5 Nontraumatic intracerebral hemorrhage, intraventricular; J96.00 Acute respiratory failure, unspecified whether with hypoxia or hypercapnia; G81.94 Hemiplegia, unspecified affecting left nondominant side; G93.49 Other encephalopathy; T45.615A Adverse effect of thrombolytic drugs, initial encounter; Z92.82 Status post administration of tPA (rtPA) in a different facility within the last 24 hours prior to admission to current facility; R40.2412 Glasgow coma scale score 13-15, at arrival to emergency department; R29.702 NIHSS score 2; Z66 Do not resuscitate; Z51.5 Encounter for palliative care; C61 Malignant neoplasm of prostate; R47.1 Dysarthria and anarthria; I10 Essential (primary) hypertension; E87.6 Hypokalemia; E78.5 Hyperlipidemia, unspecified; Z85.038 Personal history of other malignant neoplasm of large intestine; Z85.89 Personal history of malignant neoplasm of other organs and systems; Z85.72 Personal history of non-Hodgkin lymphomas; Z90.79 Acquired absence of other genital organ(s); E66.9 Obesity, unspecified; Z68.30 Body mass index [BMI] 30.0-30.9, adult
CPT/HCPCS: 31500; 36415; 36416; 43753; 70450; 70553; 71045; 80048; 80061; 81001; 82553; 82805; 83735; 84484; 85007; 85025; 85027; 85049; 85300; 85362; 85379; 85384; 85610; 85730; 86850; 86900; 86901; 87040; 87077; 87086; 87186; 93005; 93010; 93306; 93880; 94002; 94003; 95816; 95819; 96365; 96375; C9113; G8978-GP-CM; G8979-GP-CK; G8987-GO-CN; G8988-GO-CM; J0360; J0696; J2060; J2270; J2704; J3430; J3480; J7050